=== PATIENT | male | born 1960 | race Caucasian/White ===

== ENCOUNTER 2022-01-29 10:07 | Inpatient (IN) | payer OTHER ==
[2022-01-29] MEDS ORDERED: SODIUM CHLORIDE 0.9% 500 ML 500 ML IV ONE (10:21)
[2022-01-29] MEDS ORDERED: ALPRAZolam 0.25 MG TAB PO PRN (10:29)
[2022-01-29] MEDS ORDERED: NITROGLYCERIN SL TABS 0.4 MG TAB SUBLINGUAL PRN ×2 (10:29→12:11)
[2022-01-29] MEDS ORDERED: ASPIRIN 325 MG TAB PO STA (10:29)
[2022-01-29] MEDS ORDERED: ATORVASTATIN 80 MG TAB PO STA (10:29)
[2022-01-29] MEDS ORDERED: PRASUGREL 10 MG TAB ONE (10:31)
[2022-01-29] MEDS ORDERED: PRASUGREL 10 MG TAB PO STA (10:33)
[2022-01-29] MEDS: ALPRAZolam 0.5 MG TAB PO PRN ×2 (10:42→18:08)
[2022-01-29] MEDS ORDERED: fentaNYL (PF) 50 MCG/ML 2 ML AMP ONE (11:00)
[2022-01-29] MEDS ORDERED: VERAPAMIL 2.5 MG/ML 2 ML AMP ONE (11:00)
[2022-01-29] MEDS ORDERED: HEPARIN SODIUM 1,000 UN/ML (10ML VL) ONE (11:00)
[2022-01-29] MEDS ORDERED: MIDAZOLAM 2 MG/2 ML VIAL IV ONE (11:28)
[2022-01-29] MEDS ORDERED: LIDOCAINE 1% INJ 10MG/ML (30 ML VIAL-PF) IV ONE (11:28)
[2022-01-29] MEDS ORDERED: HEPARIN SODIUM 1,000 UN/ML (10ML VL) IV ONE (11:30)
[2022-01-29] MEDS ORDERED: IOPAMIDOL-370 125ML BTL INJ ONE (11:55)
[2022-01-29] MEDS ORDERED: RX INFO: IV CONTRAST WAS GIVEN 1 EACH MISC MISCELLANE PRN (12:11)
[2022-01-29] MEDS ORDERED: ZOLPIDEM 5 MG TAB PO PRN (12:11)
[2022-01-29] MEDS ORDERED: MAG HYDROX/AL HYDROX/SIMETH 30 ML CUP PO PRN (12:11)
[2022-01-29] MEDS ORDERED: ATROPINE SULFATE 0.1 MG/ML 10ML SYRINGE IV PRN (12:11)
[2022-01-29] MEDS ORDERED: SODIUM CHLORIDE 0.9% 1,000 ML in EMPTY BAG 1 BAG IV SCH (12:15)
--- NOTE | 2022-01-29 12:20 | P.CARDCATH ---
Date of Procedure: 01/29/22 Description of Procedure: PERCUTANEOUS TRANSLUMINAL CORONARY ANGIOPLASTY CLINICAL INFORMATION: The patient is a 61-year-old male who has not seen a physician in over 10 years and presented with symptoms of progressive dyspnea, CHF and non-STEMI, underwent cardiac catheterization at [facility] and was found to have totally occluded RCA with collaterals from the left system and critical stenosis in the left circumflex. His echocardiogram showed moderate impairment of the systolic function with significant MR. Recommendations were made regarding angioplasty and stenting. The procedure as well as the risks and the complications were discussed with the patient who was in full understanding and agreement. PROCEDURE: The patient was brought to the central lab technician in the fasting Semicid dictated his stated, using guidewire exchange technique the 6-Solomon Islander sheath in the right radial artery was exchanged to a new 6-Solomon Islander sheath. A 6 Solomon Islander 3.5 CLS guiding catheter was introduced into the system. After cannulating the left main, a 0.014 BMW J was advanced across the lesion and positioned distally. Following that a 2.5 x 12 NC Treck balloon was advanced and inflated at 10 atmosphere. Following that a 3.0 x 23 mm Xience paolo point stent was deployed. It was dilated at 16. After removing the balloon a 3.25 x 12 mm Xience paolo point was positioned distal to the first one and deployed at 14 abner. Subsequently the balloon was withdrawn back and the proximal stent inflations were done at 12 abner. After removing the balloon an IVUS [place] eye catheter was introduced and images were obtained. After removing the catheter 3.5 x 15 mm NC Treck balloon was advanced and multiple inflation at 12 abner were done. After the last inflation, after appropriate wait, the balloon and the guidewire were withdrawn back into the guiding catheter. Images were obtained and repeated. Those images reveal stable successful stenting. At that point, the guiding catheter, the balloon, and guidewire were removed. The sheath was removed. Hemostasis was obtained with deployment of a TR band. There were no immediate complications. The patient was returned to the room in stable condition. Of note, the patient received 5000 units of heparin as well as loading dose of Effient. His ACT was followed. There was no immediate complications. He had chest discomfort and EKG changes with the inflations that resolved at the end of the procedure. RESULTS: Successful stenting of the proximal left circumflex with reduction of stenosis from 95 % to 0 %. RECOMMENDATIONS: The patient will be continued on dual antiplatelet treatment with aspirin and Effient for at least one year in addition to aggressive coronary risks modification. He'll be evaluated again his RCA disease for revascularization. The findings and recommendations were discussed with the patient and the family, they are in full understanding and agreement. Duration of sedation: 32 minutes
[2022-01-29] MEDS ORDERED: ONDANSETRON 4 MG/2 ML VIAL ONE (12:21)
[2022-01-29] MEDS: SODIUM CHLORIDE 0.9% 1,000 ML in EMPTY BAG 1 BAG IV SCH ×3 (18:58→23:30)
[2022-01-29 20:29] VITALS: TEMP 97.9
[2022-01-29] MEDS: FUROSEMIDE 20 MG TAB PO SCH (20:29)
[2022-01-29] MEDS: METOPROLOL SUCCINATE (ER) 25 MG TAB.ER.24H PO SCH (20:30)
[2022-01-29] MEDS ORDERED: ATORVASTATIN 80 MG TAB PO SCH (21:00)
[2022-01-30] MEDS: ALPRAZolam 0.5 MG TAB PO PRN (00:06)
--- NOTE | 2022-01-30 02:37 | HP ---
HISTORY AND PHYSICAL HISTORY OF PRESENT ILLNESS: A 61-year-old white male transferred from [facility] due to recent heart catheterization over there yesterday that showed a critical stenosis in the left circumflex. He has been sent over here for a PTCA, which had moderate impairment of systolic function, ejection fraction 35% and some moderate mitral regurgitation. He underwent angioplasty of the stent today. He is postop at this time. Medications were discussed with him. A 14-point review of systems is otherwise negative except for he has had progressive shortness of breath recently. Risk factor modification discussed with him. MEDICATIONS: He currently is taking, 1. Xanax 0.5 q.6h p.r.n. 2. Lipitor 80 at bedtime. 3. Farxiga 10 mg daily. 4. Lasix 20 mg b.i.d. 5. Lipitor 80 mg daily. 6. Aspirin 325 daily. 7. He is on Effient. 8. Metoprolol-XL 25 mg b.i.d. 9. Effient 10 mg daily. 10.Lisinopril 2.5 mg daily. PHYSICAL EXAMINATION: VITAL SIGNS: He is 96 on 3 L. Blood pressure has been low 60s to 75 systolic, checked at 122/44 postop, temp 98.3, pulse 99, respiratory rate 16 to 18. CARDIOVASCULAR: S1, S2. LUNGS: Clear. GI: Soft. EXTREMITIES: 2+ edema. ASSESSMENT: Cardiomyopathy. Questionable recent myocardial infarction, non ST-elevation myocardial infarction, ischemic cardiomyopathy, status post percutaneous transluminal coronary angioplasty of the left circumflex, acute hypoxic respiratory distress secondary to congestive heart failure, systolic heart failure. Home medicines were transferred over here from [facility], continue on them. Watch him postoperatively with risk factor modification. Farxiga has been given for congestive heart failure prevention for relapses at the hospital. Prognosis extremely is guarded. MMODL / IJN: [id number] /
[2022-01-30] MEDS: SODIUM CHLORIDE 0.9% 1,000 ML in EMPTY BAG 1 BAG IV SCH ×2 (06:19→15:16)
[2022-01-30] MEDS ORDERED: HEPARIN SODIUM,PORCINE 2,500 UNIT in SODIUM CHLORIDE 0.9% 250 ML IRRIGATION PRN (07:00)
[2022-01-30] MEDS ORDERED: HEPARIN SODIUM,PORCINE 10,000 UNIT in SODIUM CHLORIDE 0.9% 1,000 ML IRRIGATION PRN (07:00)
[2022-01-30 08:12] LABS: African American GFR (CKD) >90 (>60 ml/min/1.73 sqM); Anion Gap 11 mmol/L; Blood Urea Nitrogen 24 mg/dL (9-20); Calcium 8.4 mg/dL (8.4-10.2); Carbon Dioxide 23 mmol/L (22-30); Chloride 101 mmol/L (98-107); Glucose 108 mg/dL (74-99); Non-African American GFR(CKD) >90 (>60 ml/min/1.73 sqM); Potassium 4.1 mmol/L (3.5-5.1); Sodium 135 mmol/L (137-145)
[2022-01-30] MEDS ORDERED: lisinopriL 10 MG TAB PO SCH (09:00)
[2022-01-30] MEDS ORDERED: SPIRONOLACTONE 25 MG TAB PO SCH (09:00)
[2022-01-30] MEDS ORDERED: PRASUGREL 10 MG TAB PO SCH (09:00)
[2022-01-30] MEDS ORDERED: ASPIRIN 81 MG PO SCH (09:00)
[2022-01-30] MEDS ORDERED: DAPAGLIFLOZIN PROPANEDIOL 10 MG TABLET PO SCH (09:00)
[2022-01-30] MEDS: METOPROLOL SUCCINATE (ER) 25 MG TAB.ER.24H PO SCH (09:18)
[2022-01-30] MEDS: FUROSEMIDE 20 MG TAB PO SCH (09:18)
[2022-01-30 09:31] VITALS: BP 110/77; RESP 17
--- NOTE | 2022-01-30 11:39 | P.PN ---
Subjective Progress Note Date: 01/30/22 HISTORY OF PRESENT ILLNESS: This is 61-year-old male who underwent stenting of the proximal left circumflex yesterday with Dr. Bush. He initially underwent cardiac catheterization at [facility] and found to have totally occluded RCA with collaterals from the left and critical stenosis in the left circumflex. He had an echocardiogram there which revealed moderate impairment of the systolic function with significant MR. Patient examined this morning at the bedside. Patient denies chest pain or pressure. He denies shortness of breath. Vital signs are stable. Right radial cath site with pulse present. PHYSICAL EXAM: VITAL SIGNS: Reviewed. GENERAL: Well-developed in no acute distress. NECK: Supple. No JVD or thyromegaly LUNGS: Respirations even and unlabored. Lungs essentially clear to auscultation bilaterally. HEART: Regular rate and rhythm. S1 and S2 heard. + systolic murmur. EXTREMITIES: Normal range of motion. No clubbing or cyanosis. Peripheral pulses intact. No lower extremity edema ASSESSMENT: Coronary artery disease, status post stenting as above Ischemic cardiomyopathy Mitral regurgitation Former nicotine dependence Daily alcohol use PLAN: Recommend abstinence from alcohol Continue dual antiplatelet therapy Continue additional cardiac medications Continue to monitor patient for an additional 24 hours Likely discharge home tomorrow Nurse practitioner note has been reviewed by physician. Signing provider agrees with the documented findings, assessment, and plan of care. Objective - Vital Signs Vital signs: Vital Signs Temp 97.9 F 01/29/22 20:00 Pulse 97 01/30/22 09:20 Resp 17 01/30/22 08:00 BP 110/77 01/30/22 09:00 Pulse Ox 94 L 01/30/22 08:00 FiO2 Intake & Output 01/29/22 01/30/22 01/30/22 18:59 06:59 18:59 Intake Total 418 118 Output Total 500 400 0 Balance -82 -400 118 Weight 91 kg Intake: IV 300 Oral 118 118 Output: Urine 500 400 0 Urine/Stool Mix 0 Oral Regurgitation 0 Other: Voiding Method Toilet Urinal Toilet Urinal # Voids 0 # Bowel Movements 0 - Labs CBC & Chem 7: 01/30/22 06:56 Labs: Abnormal Lab Results - Last 24 Hours (Table) 01/30/22 Range/Units 06:56 Sodium 135 L (137-145) mmol/L BUN 24 H (9-20) mg/dL Glucose 108 H (74-99) mg/dL
[2022-01-30 13:53] VITALS: BMI 27.9
[2022-01-30 14:01] VITALS: PULSE 85
--- NOTE | 2022-01-31 00:44 | DS ---
DISCHARGE SUMMARY DISCHARGE MEDICATIONS: 1. Lipitor 80 mg daily. 2. Plavix 75 mg daily. 3. Lasix 20 mg b.i.d. 4. Zestril 2.5 daily. 5. Toprol-XL 25 b.i.d. 6. Aldactone 25 mg daily. 7. Nitrostat sublingual p.r.n. He was transferred here from [facility] to [facility] for which he had acute ischemic cardiomyopathy with a myocardial infarction. He underwent coronary angiogram. He had a right RCA stent placed. He has ejection fraction around 35%. He was stabilized with medical care. He was sent home in stable condition, unable to pay for [employer] and Effient, so we are going to switch him over to Plavix and aspirin. Follow up in office in a week for possible samples. Condition stable. Prognosis guarded. Ambulate as tolerated. Risk factor modification. MMODL / IJN: [id number] /
[2022-01-31] MEDS ORDERED: CLOPIDOGREL 75 MG TAB PO SCH (09:00)
--- NOTE | 2022-02-03 08:25 | CDI ---
Documentation Clarification Form Date: 02/03/2022 08:00:00 AM From: Sylwia Crenshaw Admit Date: 01/29/2022 10:08:00 AM Patient Name: Shyam Sloan Visit Number: [id number] Discharge Date: 01/30/2022 04:32:00 PM ATTENTION: The Clinical Documentation Specialists (CDI) and [facility] Coding Staff appreciate your assistance in clarifying documentation. Please respond to the clarification below the line at the bottom and electronically sign. The CDI & [facility] Coding staff will review the response and follow-up if needed. Please note: Queries are made part of the Legal Health Record. If you have any questions, please contact the author of this message via ITS. Dr. Fam Simon Per cardiac consult, written for previous admit of 01/27 Acute respiratory failure secondary to CHF systolic is documented. Please clarify if your patient still has acute hypoxic respiratory failure due to systolic CHF on this admit of January 29. Patient's O2 sat on admit is 91% on RA. Based on this information and the findings below, is there an additional diagnosis that is clinically appropriate for this patient? History/Risk Factors: NSTEMI, Patient with recent admit for systolic CHF and respiratory failure. Tobacco use: Patient has a history of tobacco use Home oxygen: NO Clinical Indicators: 91% on RA and placed on 3L NC, EF of 35% Vital signs: 98.3 F 99 bpm 16, 60/43, 91% on RA put on 3L NC Treatment: O2, Given Farxiga for CHF prevention, Received a home dose of Lasix O2/Vent/BiPap O2 2 and 3 L NC Is there an additional diagnosis that is clinically appropriate for this patient? [ ] Acute Hypoxic Respiratory Failure (pO2 <60 mm Hg or SpO2 <91% on room air) due to acute systolic CHF [ ] Acute Hypercapnic Respiratory Failure (pCO2 >50 and pH <7.35) [ ] Acute on Chronic Respiratory Failure [ ] Chronic Respiratory Failure [ ] Acute Respiratory Distress [ ] Acute Respiratory failure due to Acute systolic CHF ruled out (on previous admit) [ ] Other Diagnosis, please specify [ ] Unable to determine MTDD
--- NOTE | 2022-02-05 11:34 | CDI ---
Documentation Clarification Form Date: 02/03/2022 08:00:00 AM From: Sylwia Crenshaw Admit Date: 01/29/2022 10:08:00 AM Patient Name: Shyam Sloan Visit Number: [id number] Discharge Date: 01/30/2022 04:32:00 PM ATTENTION: The Clinical Documentation Specialists (CDI) and [facility] Coding Staff appreciate your assistance in clarifying documentation. Please respond to the clarification below the line at the bottom and electronically sign. The CDI & [facility] Coding staff will review the response and follow-up if needed. Please note: Queries are made part of the Legal Health Record. If you have any questions, please contact the author of this message via ITS. Dr. Fam Simon Per cardiac consult, written for previous admit of 01/27 Acute respiratory failure secondary to CHF systolic is documented. Please clarify if your patient still has acute hypoxic respiratory failure due to systolic CHF on this admit of January 29. Patient's O2 sat on admit is 91% on RA. Based on this information and the findings below, is there an additional diagnosis that is clinically appropriate for this patient? History/Risk Factors: NSTEMI, Patient with recent admit for systolic CHF and respiratory failure. Tobacco use: Patient has a history of tobacco use Home oxygen: NO Clinical Indicators: 91% on RA and placed on 3L NC, EF of 35% Vital signs: 98.3 F 99 bpm 16, 60/43, 91% on RA put on 3L NC Treatment: O2, Given Farxiga for CHF prevention, Received a home dose of Lasix O2/Vent/BiPap O2 2 and 3 L NC Is there an additional diagnosis that is clinically appropriate for this patient? [ ] Acute Hypoxic Respiratory Failure (pO2 <60 mm Hg or SpO2 <91% on room air) due to acute systolic CHF [ ] Acute Hypercapnic Respiratory Failure (pCO2 >50 and pH <7.35) [ ] Acute on Chronic Respiratory Failure [ ] Chronic Respiratory Failure [ ] Acute Respiratory Distress [ ] Acute Respiratory failure due to Acute systolic CHF ruled out (on previous admit) [ ] Other Diagnosis, please specify [ ] Unable to determine MTDD
--- NOTE | 2022-02-07 14:29 | PN ---
PROGRESS NOTE Acute hypoxemic respiratory failure, hypercapnic respiratory failure due to acute systolic congestive heart failure. MMODL / IJN: [id number] /
== END 2022-01-30 16:32 | disposition home or self-care (01) | DRG 246 ==
LOC: 3SCARD 10:08
PROVIDERS: ADMIT Family Medicine; ATTEND Family Medicine
PROC: 027035Z Dilation of Coronary Artery, One Artery with Two Drug-eluting Intraluminal Devices, Percutaneous Approach (ICD-10-PCS; principal; 2022-01-29 11:45)
DX: I25.10 Atherosclerotic heart disease of native coronary artery without angina pectoris (principal); I21.4 Non-ST elevation (NSTEMI) myocardial infarction; J96.01 Acute respiratory failure with hypoxia; J96.02 Acute respiratory failure with hypercapnia; I50.21 Acute systolic (congestive) heart failure; I50.22 Chronic systolic (congestive) heart failure; I25.5 Ischemic cardiomyopathy; Z28.310 Unvaccinated for COVID-19; Z28.21 Immunization not carried out because of patient refusal; I34.0 Nonrheumatic mitral (valve) insufficiency; I25.2 Old myocardial infarction; Z71.3 Dietary counseling and surveillance; Z87.891 Personal history of nicotine dependence; Z79.01 Long term (current) use of anticoagulants; Z79.82 Long term (current) use of aspirin; Z79.899 Other long term (current) drug therapy
CPT/HCPCS: 80048

== ENCOUNTER → 2022-05-01 | Outpatient (CLI) | payer OTHER ==
[~2022-05-01] MED LIST: REGADENOSON 0.4 MG/5 ML SYRINGE IV ONE
--- NOTE | 2022-05-01 13:05 | CA ---
Lexiscan Nuclear Stress Test Report Name: Shyam Sloan Exam Date: 05/01/2022 10:12 Exam Location: [place] Stress Ht (in): 70 Wt (lb): 190 BSA: 2.04 Ordering Phys: Estephania Bush MD Referring Phys: Sophia Mclean Technologist: Goyo Raya Age: 61 Gender: M : 1960 Procedure CPT: Indications: I25.5 ISCHEMIC CARDIOMYOPATHY I25.10 HEART DISEASE ICD-10 Codes: Patient History: Medications: SPIRONLACTONE, FUROSIMIDE, ATORVASTATIN, CLOPIDOGREL, ASA, LISINOPRIL, NITROGLYCERIN, METOPROLOL Meds past 24 hrs: Pretest Chest Pain: STRESS TEST Lexiscan Protocol Exercise Duration (min:sec): 02:[address] Depressions (mm): Angina Score: Heller Score: Resting HR (bpm): 95 Peak HR (bpm): 103 Resting BP (mmHg): 122 / 97 Peak BP (mmHg): 179 / 90 MPHR: 159 Target HR: 135 % MPHR: 65 METS: 1.0 Total Dose: Peak Dose: Atropine: Double Product: 79122 BP Response: Stress Termination: PROTOCOL COMPLETE Stress Symptoms: SLIGHT CHEST TIGHTNESS, BETTER AFTER TEST WAS COMPLETE Stress Summary: ECG ANALYSIS Resting ECG: Stress ECG: CONCLUSIONS Lexiscan Cardiolite stress test Baseline heart rate 95 beats a minute Blood pressure 120-1 7 mmHg Baseline per EKG shows a right bundle branch block pattern with [address] depression in the precordial leads Occasional PVCs Patient received Lexiscan infusion per protocol Heart rates remained in the 80s and 90s Occasional PVCs noted Elevated blood pressure reading at the end of the procedure, 179/90 mmHg Patient complaining of chest tightness ECG abnormalities persisted New proportional be reported separately Dr. Alek Hansen MD (Electronically Signed) Final Date: 01 May 2022 13:04
--- NOTE | 2022-05-04 06:52 | NM ---
EXAMINATION TYPE: NM stress lexiscan cardiolite DATE OF EXAM: 05/01/2022 COMPARISON: NONE HISTORY: History of hypertension and hypercholesterolemia. History of heart catheterization with kimberly oplasty. History of tobacco use in the past. Ischemic cardiomyopathy. Difficulty in breathing. TECHNIQUE: After the intravenous administration of 10.2 mCi Tc 99m Sestamibi - Cardiolite resting SP ECT images acquired 45 minutes post injection. The patient received 0.4mg Lexiscan, 25.2 mCi Tc 99m Sestamibi - Stress images obtained [address] injection FINDINGS: Review of stress and rest SPECT images demonstrates for uptake on stress and rest images in the infer ior left ventricular wall consistent with old infarct. Polar maps show areas of uptake on rest images versus rest images. Some areas of bryan-infarct ischemia cannot be excluded. Gated analysis shows dim inished overall left ventricular ejection fraction estimated at 34%. Abnormal end diastolic volume no ana cristina. IMPRESSION: Evidence of dilated cardiomyopathy confirmed. Bryan-infarct ischemia though unlikely canno t be excluded on this exam.
== END | disposition home or self-care (01) ==
LOC: RADNMMAIN 08:22
PROVIDERS: ATTEND Internal Medicine Interventional Cardiology
DX: I42.0 Dilated cardiomyopathy (principal); I25.5 Ischemic cardiomyopathy; I25.10 Atherosclerotic heart disease of native coronary artery without angina pectoris; I10 Essential (primary) hypertension; E78.00 Pure hypercholesterolemia, unspecified; I45.10 Unspecified right bundle-branch block; R94.31 Abnormal electrocardiogram [ECG] [EKG]; Z72.0 Tobacco use
CPT/HCPCS: 93017; 78452; A9500; J2785

== ENCOUNTER → 2023-03-09 | Outpatient (CLI) | payer OTHER ==
[2023-03-09 08:31] LABS: NT-Pro-B-Type Natriuretic Pept 775 pg/mL
[2023-03-09 16:04] LABS: ALT 35 U/L (10-49); AST 64 U/L (14-35); Albumin 4.4 g/dL (3.8-4.9); Albumin/Globulin Ratio 1.29 Ratio (1.60-3.17); Alkaline Phosphatase 124 U/L (41-126); Blood Urea Nitrogen 13.8 mg/dL (9.0-27.0); Calcium 9.5 mg/dL (8.7-10.3); Carbon Dioxide 25.5 mmol/L (21.6-31.8); Chloride 102 mmol/L (96-109); Chol/HDL Ratio 2.95 Ratio; Globulin 3.4 g/dL (1.6-3.3); Glucose 121 mg/dL (70-110); LDL Cholesterol,Calculated 65.5 mg/dL (0.0-131.0); Potassium 4.6 mmol/L (3.5-5.5); Sodium 141 mmol/L (135-145); Total Bilirubin 0.4 mg/dL (0.3-1.2); Total Protein 7.8 g/dL (6.2-8.2)
== END | disposition home or self-care (01) ==
LOC: LABWHC1 07:44
PROVIDERS: ATTEND Internal Medicine Interventional Cardiology
DX: I25.5 Ischemic cardiomyopathy (principal); E78.2 Mixed hyperlipidemia
CPT/HCPCS: 36415; 80053; 80061; 83880

== ENCOUNTER 2023-03-29 07:10 | Day surgery (SDC) | payer OTHER ==
[2023-03-25 09:12] VITALS: BMI 27.9
[~2023-03-29 07:10] MED LIST changes: +ALPRAZolam 0.25 MG TAB PO PRN; +ALPRAZolam 0.5 MG TAB PO PRN; +ASPIRIN 325 MG TAB PO STA; +NITROGLYCERIN SL TABS 0.4 MG TAB SUBLINGUAL PRN; -REGADENOSON 0.4 MG/5 ML SYRINGE IV ONE; +SODIUM CHLORIDE 0.9% 1,000 ML in EMPTY BAG 1 BAG IV SCH
[2023-03-29 07:34] LABS: Basophils % (A) 1 %; Eosinophils # (A) 0.4 k/uL (0-0.7); Eosinophils % (A) 6 %; HCT 44.5 % (39.0-53.0); HGB 14.6 gm/dL (13.0-17.5); Lymphocytes # (A) 1.8 k/uL (1.0-4.8); Lymphocytes % (A) 29 %; MCH 32.9 pg (25.0-35.0); MCHC 32.9 g/dL (31.0-37.0); Mean Platelet Volume 7.8; Monocytes # (A) 0.4 k/uL (0-1.0); Monocytes % (A) 6 %; Neutrophils # (A) 3.6 k/uL (1.3-7.7); Neutrophils % (A) 58 %; Platelet Count 176 k/uL (150-450); RBC 4.45 m/uL (4.30-5.90); RDW 13.4 % (11.5-15.5); WBC 6.3 k/uL (3.8-10.6)
[2023-03-29 07:39] VITALS: RESP 18; TEMP 97.3
[2023-03-29 07:47] LABS: Glucose,Whole Blood 105 mg/dL (70-110)
[2023-03-29] MEDS ORDERED: HEPARIN SODIUM 1,000 UN/ML (10ML VL) ONE (09:34)
[2023-03-29] MEDS ORDERED: fentaNYL (PF) 50 MCG/ML 2 ML AMP ONE (09:34)
[2023-03-29] MEDS ORDERED: LIDOCAINE 1% INJ 10MG/ML (20 ML MDV) ONE (09:34)
[2023-03-29] MEDS ORDERED: VERAPAMIL 2.5 MG/ML 2 ML AMP ONE (09:34)
[2023-03-29] MEDS ORDERED: fentaNYL (PF) 50 MCG/1 ML VIAL IVP ONE (09:45)
[2023-03-29] MEDS: MIDAZOLAM 2 MG/2 ML VIAL IVP ONE ×2 (09:45→10:12)
[2023-03-29] MEDS ORDERED: LIDOCAINE 1% INJ 10MG/ML (20 ML MDV) SQ ONE (09:47)
[2023-03-29] MEDS: VERAPAMIL SYRINGE (5 MG/10 ML) INTRAARTER ONE ×2 (09:55→10:16)
[2023-03-29] MEDS: HEPARIN SODIUM 1,000 UN/ML (10ML VL) IV ONE ×2 (09:58→10:11)
[2023-03-29] MEDS ORDERED: NITROGLYCERIN 1000MCG/10ML SYRINGE INTRACORON ONE (10:24)
[2023-03-29] MEDS ORDERED: IOPAMIDOL-370 100ML BTL INJ ONE (10:27)
[2023-03-29] MEDS ORDERED: RX INFO: IV CONTRAST WAS GIVEN 1 EACH MISC MISCELLANE PRN (10:43)
[2023-03-29] MEDS ORDERED: NITROGLYCERIN SL TABS 0.4 MG TAB SUBLINGUAL PRN (10:44)
[2023-03-29] MEDS ORDERED: SODIUM CHLORIDE 0.9% 1,000 ML IV SCH (10:45)
--- NOTE | 2023-03-29 10:57 | P.CARDCATH ---
Date of Procedure: 03/29/23 Description of Procedure: Cardiac Catheterization: The patient is a 62-year-old male with known history of CAD, hypertension, hyperlipidemia, post stenting of the left circumflex in January 2022 and known chronic total occlusion of the RCA was been complaining of episodes of chest discomfort improved with nitroglycerin, increasing in frequency. Recommendations were made regarding cardiac catheterization, the risks and the complications were discussed with the patient who is in full understanding and agreement. Procedure Description: Patient was brought to cath lab nurse in fasting semi-sedated state after receiving Fentanyl and Benadryl achieiving moderate conscious sedated state. Using Xylocaine Anesthesia and modified Seldinger technique, a 6-Malaysian sheath was introduced in the right radial artery . Subsequently, selective coronary angiography was performed using a 5-Malaysian 3.5 bend Steffanie catheter. Multiple views of the coronary artery including hemiaxial views were obtained. The 6-Malaysian pigtail catheter was used to cross the aortic valve and LVEDP was calculated. Following that a 6-Malaysian CLS 3.5 guiding catheter was introduced and the left main was cannulated. Subsequently an Omni Doppler flow wire was introduced in the LAD and IFR was measured, the wire was introduced afterward to the left circumflex and IFR was measured. Following that, catheter and sheath were removed. Hemostasis was obtained with deployment of vascular band . There was no immediate complication. Patient was returned to room in stable condition. Of note, the patient received a total of 5500 units of intravenous heparin as well as intra-arterial verapamil. Findings: Fluoroscopy: Calcification of the coronary arteries was noted of moderate to severe degree Left main: This is a large size vessel bifurcating into LAD and left circumflex, the proximal LAD has 10-20% plaque. LAD: This is a large size vessel reaching to the apex giving rise to a diagonal branch proximally the takeoff of the diagonal branch has a 99% stenosis, the proximal LAD has an eccentric 60-70% stenosis, the rest of the vessel has diffuse intimal disease without any high-grade stenosis. Left circumflex: This is a nondominant vessel, large in caliber giving rise to 2 obtuse marginal branch the stented segment in the proximal left circumflex is patent, there is a 30-40% plaque proximally that is of the vessel has no high- grade stenosis RCA: In this vessel is totally occluded in the midsegment with no significant antegrade flow, there is collateral from the left system toward the PDA and the PLV IFR: The LAD 0.98, left circumflex 1.04 Left Ventriculogram: Not performed Hemodynamics: There was no gradient across the aortic valve, LVEDP was 18-20 mmHg Conclusion: 1. Calcified coronary arteries 2. Moderate disease in the LAD with non hemodynamically significant IFR 3. Mild instent restenosis of the left circumflex with non hemodynamically significant IFR 4. Chronically occluded RCA Recommendations: I would recommend to continue medical therapy with continued aggressive coronary risks modifications and depending on his progress further recommendations will be made. The findings and the recommendations were discussed with the patient and the family and they were in full understanding and agreement. Duration of sedation is 44 minutes.
[2023-03-29 13:32] VITALS: BP 112/57; PULSE 71
[2023-03-29] MEDS ORDERED: lisinopriL 10 MG TAB PO SCH (21:00)
[2023-03-29] MEDS ORDERED: ISOSORBIDE MONONITRATE ER 60 MG TAB.ER.24H PO SCH (21:00)
[2023-03-29] MEDS ORDERED: DAPAGLIFLOZIN PROPANEDIOL 10 MG TABLET PO SCH (21:00)
[2023-03-29] MEDS ORDERED: METOPROLOL SUCCINATE (ER) 25 MG TAB.ER.24H PO SCH (21:00)
[2023-03-29] MEDS ORDERED: SPIRONOLACTONE 25 MG TAB PO SCH (21:00)
[2023-03-29] MEDS ORDERED: ATORVASTATIN 80 MG TAB PO SCH (21:00)
[2023-03-30] MEDS ORDERED: CLOPIDOGREL 75 MG TAB PO SCH (09:00)
[2023-03-30] MEDS ORDERED: ASPIRIN 81 MG PO SCH (09:00)
== END 2023-03-29 13:48 | disposition home or self-care (01) ==
LOC: CATHCVL 07:10
PROVIDERS: ATTEND Internal Medicine Interventional Cardiology
DX: I25.10 Atherosclerotic heart disease of native coronary artery without angina pectoris (principal); I25.82 Chronic total occlusion of coronary artery; I10 Essential (primary) hypertension; E78.5 Hyperlipidemia, unspecified; Z86.79 Personal history of other diseases of the circulatory system; F10.90 Alcohol use, unspecified, uncomplicated; Z95.5 Presence of coronary angioplasty implant and graft; Z98.62 Peripheral vascular angioplasty status; Z82.49 Family history of ischemic heart disease and other diseases of the circulatory system; Z79.899 Other long term (current) drug therapy
CPT/HCPCS: 93458; 93799; 85025; C1887; C1769 ×3; C1894; J2250; J2001; J1644; Q9967; J3010; J2305

== ENCOUNTER → 2023-06-16 | Outpatient (CLI) | payer OTHER ==
[2023-06-16 18:06] LABS: ALT 31 U/L (10-49); AST 50 U/L (14-35); Chol/HDL Ratio 2.45 Ratio; LDL Cholesterol,Calculated 38.1 mg/dL (0.0-131.0)
== END | disposition home or self-care (01) ==
LOC: LABWHC1 08:23
PROVIDERS: ATTEND Internal Medicine Interventional Cardiology
DX: E78.2 Mixed hyperlipidemia (principal)
CPT/HCPCS: 36415; 80061; 84450; 84460

== ENCOUNTER 2023-07-06 08:06 | Day surgery (SDC) | payer OTHER ==
[2023-07-05 10:18] VITALS: BMI 28.4
[~2023-07-06 08:06] MED LIST changes: -ASPIRIN 325 MG TAB PO STA; +HEPARIN SODIUM,PORCINE (1 ML) 2,500 UNIT in SODIUM CHLORIDE 0.9% 250 ML IRRIGATION PRN; +HEPARIN SODIUM,PORCINE 10,000 UNIT in SODIUM CHLORIDE 0.9% 1,000 ML IRRIGATION PRN; -SODIUM CHLORIDE 0.9% 1,000 ML in EMPTY BAG 1 BAG IV SCH
[2023-07-06] MEDS: SODIUM CHLORIDE 0.9% 1,000 ML IV ONE (08:59)
[2023-07-06 09:05] LABS: Basophils % (A) 1 %; Eosinophils # (A) 0.2 k/uL (0-0.7); Eosinophils % (A) 3 %; HGB 14.5 gm/dL (13.0-17.5); Lymphocytes % (A) 20 %; MCH 32.8 pg (25.0-35.0); MCHC 32.9 g/dL (31.0-37.0); MCV 99.8 fL (80.0-100.0); Macrocytosis Slight; Mean Platelet Volume 7.8; Monocytes # (A) 0.3 k/uL (0-1.0); Monocytes % (A) 7 %; Neutrophils # (A) 3.4 k/uL (1.3-7.7); Neutrophils % (A) 68 %; Platelet Count 160 k/uL (150-450); RBC 4.41 m/uL (4.30-5.90)
[2023-07-06 09:19] LABS: African American GFR (CKD) >90 (>60 ml/min/1.73 sqM); Anion Gap 11 mmol/L; Blood Urea Nitrogen 17 mg/dL (9-20); Carbon Dioxide 21 mmol/L (22-30); Chloride 109 mmol/L (98-107); Glucose 113 mg/dL (74-99); Non-African American GFR(CKD) >90 (>60 ml/min/1.73 sqM); Potassium 3.9 mmol/L (3.5-5.1); Sodium 141 mmol/L (137-145)
[2023-07-06 09:22] VITALS: RESP 16
[2023-07-06] MEDS ORDERED: VERAPAMIL 2.5 MG/ML 2 ML AMP ONE (10:42)
[2023-07-06] MEDS ORDERED: LIDOCAINE 1% INJ 10MG/ML (20 ML MDV) ONE (10:42)
[2023-07-06] MEDS ORDERED: HEPARIN SODIUM 1,000 UN/ML (10ML VL) ONE (10:42)
[2023-07-06] MEDS ORDERED: fentaNYL (PF) 50 MCG/ML 2 ML AMP ONE (10:48)
[2023-07-06] MEDS ORDERED: HEPARIN SODIUM,PORCINE 30 ML 30 ML ONE (10:49)
[2023-07-06] MEDS: fentaNYL (PF) 50 MCG/1 ML VIAL IVP ONE (11:08)
[2023-07-06] MEDS: MIDAZOLAM 2 MG/2 ML VIAL IVP ONE ×3 (11:16→12:23)
[2023-07-06] MEDS: LIDOCAINE 1% INJ 10MG/ML (20 ML MDV) SQ ONE (11:16)
[2023-07-06] MEDS: VERAPAMIL SYRINGE (5 MG/10 ML) INTRAARTER ONE (11:18)
[2023-07-06] MEDS: HEPARIN SODIUM 1,000 UN/ML (10ML VL) IVP ONE ×2 (11:23→11:29)
[2023-07-06] MEDS: IOPAMIDOL-370 100ML BTL INJ ONE ×2 (11:50→12:32)
[2023-07-06] MEDS: NITROGLYCERIN 1000MCG/10ML SYRINGE INTRACORON ONE (12:26)
[2023-07-06] MEDS ORDERED: MAG HYDROX/AL HYDROX/SIMETH 30 ML CUP PO PRN (12:45)
[2023-07-06] MEDS ORDERED: RX INFO: IV CONTRAST WAS GIVEN 1 EACH MISC MISCELLANE PRN (12:45)
[2023-07-06] MEDS ORDERED: ZOLPIDEM 5 MG TAB PO PRN (12:45)
[2023-07-06] MEDS ORDERED: NITROGLYCERIN SL TABS 0.4 MG TAB SUBLINGUAL PRN ×2 (12:45→12:47)
[2023-07-06] MEDS ORDERED: ATROPINE SULFATE 0.1 MG/ML 10ML SYRINGE IV PRN (12:45)
--- NOTE | 2023-07-06 12:56 | P.CARDCATH ---
Date of Procedure: 07/06/23 Description of Procedure: Cardiac Catheterization: The patient is a 62-year-old male who presented in 2021 with an acute myocardial infarction and underwent stenting of the left circumflex, he has chronic total occlusion of the RCA and moderate significant disease in the LAD. Recently he has been complaining of a increase chest discomfort, resolving with sublingual nitroglycerin. Recommendations were made regarding cardiac catheterization, the risks and the complications were discussed with the patient who is in full understanding and agreement. Procedure Description: Patient was brought to dairy lab technician in fasting semi-sedated state after receiving Fentanyl and Benadryl achieiving moderate conscious sedated state. Using Xylocaine Anesthesia and modified Seldinger technique, a 6-Malay sheath was introduced in the right radial artery . Subsequently, selective coronary angiography was performed using a 5-Malay 3.5 bend Steffanie catheter. Multiple views of the coronary artery including hemiaxial views were obtained. The right Steffanie catheter was used to cross the aortic valve and LVEDP was calculated. PCI: After removing the catheter a 6 Malay EBU 4.0 guiding catheter was introduced and after cannulating the left main a 0.014 BMW J-wire was positioned in the distal LAD. Attempt to advance a [place] eye IVUS were unsuccessful, the catheter was removed and a 2.5 x 12 mm NC trek balloon was advanced and 2 inflation at 10 abner were done. Subsequently the IVUS was advanced and images were obtained that revealed severe calcification at the site of the lesion. After removing the catheter a 3.5 x 12 mm lithotripsy shockwave balloon was advanced and multiple treatment were done in the proximal segment of the LAD. After removing the balloon repeat IVUS imaging was performed and subsequently a 3.0 x 33 mm Xience paolo point stent was deployed at 16 abner. Repeat IVUS imaging was performed and a 4.0 x 15 mm NC trek balloon was advanced and 2 inflations at 10 abner were done. After the last inflation the wire was withdrawn back in the guiding catheter and images were obtained and revealed stable successful stenting. Following that, catheter and sheath were removed. Hemostasis was obtained with deployment of vascular band . There was no immediate complication. Patient was returned to room in stable condition. Of note, the patient received a total of 8000 units of intravenous heparin as well as intra-arterial verapamil. He was continued on clopidogrel. His ACT was followed. He had chest discomfort and EKG changes with the inflations that resolved at the end of the procedure. Findings: Fluoroscopy: Severe calcifications of the LAD was noted Left main: This is a large size vessel bifurcating into LAD and left circumflex, left main has no significant obstructive disease LAD: This is a large size vessel, reaching to the apex, giving rise to a proximal diagonal branch of moderate caliber. The LAD proximally has an eccentric 90% stenosis and a first diagonal branch has a 99% stenosis in the ostium. The rest of the vessel has diffuse intimal disease. Left circumflex: This is a nondominant vessel giving rise to 3 obtuse marginal branch the first 1 is small in caliber. The stented segment in the proximal left circumflex is patent with mild in-stent restenosis of 20 to 30%. RCA: This is a dominant vessel that has a 90% stenosis proximally and then chronic total occlusion in mid segment with no significant antegrade flow. There is collaterals from the LAD toward the PDA Left Ventriculogram: Not performed Hemodynamics: There was no gradient across aortic valve, LVEDP was 16-18 mmHg Conclusion: 1. Calcified LAD with severe stenosis proximally 2. Patent stent in the left circumflex with mild in-stent restenosis 3. Chronic total occlusion of the RCA 4. Successful stenting of the proximal LAD with reduction of stenosis from 90% to less than 5% with adjunctive IVUS imaging and shockwave treatment Recommendations: The patient will continue on aspirin and clopidogrel without any interruption for at least 6 months in addition to aggressive coronary risks modification, attempting to maintain LDL below 70 mg/dL. The findings and the recommendations were discussed with the patient and the family and they were in full understanding and agreement. Duration of sedation is 87 minutes.
[2023-07-06] MEDS: SODIUM CHLORIDE 0.9% 1,000 ML in EMPTY BAG 1 BAG IV SCH ×2 (16:26)
[2023-07-06] MEDS: ASPIRIN 325 MG TAB PO ONE (16:26)
[2023-07-06] MEDS: ATORVASTATIN 80 MG TAB PO SCH (20:27)
[2023-07-06] MEDS: METOPROLOL SUCCINATE (ER) 50 MG TAB.ER.24H PO SCH (20:27)
[2023-07-06] MEDS: lisinopriL 10 MG TAB PO SCH (20:27)
[2023-07-06] MEDS: SPIRONOLACTONE 25 MG TAB PO SCH (20:27)
[2023-07-06] MEDS: ISOSORBIDE MONONITRATE ER 60 MG TAB.ER.24H PO SCH (20:28)
[2023-07-06] MEDS: DAPAGLIFLOZIN PROPANEDIOL 10 MG TABLET PO SCH (20:28)
[2023-07-07 07:11] VITALS: BP 101/71; PULSE 95; TEMP 98.7
[2023-07-07 07:47] LABS: African American GFR (CKD) >90 (>60 ml/min/1.73 sqM); Anion Gap 9 mmol/L; Blood Urea Nitrogen 11 mg/dL (9-20); Calcium 8.6 mg/dL (8.4-10.2); Carbon Dioxide 22 mmol/L (22-30); Chloride 108 mmol/L (98-107); Glucose 104 mg/dL (74-99); Non-African American GFR(CKD) >90 (>60 ml/min/1.73 sqM); Potassium 3.6 mmol/L (3.5-5.1); Sodium 139 mmol/L (137-145)
[2023-07-07] MEDS: CLOPIDOGREL 75 MG TAB PO SCH (08:30)
[2023-07-07] MEDS: ASPIRIN 81 MG PO SCH (08:30)
--- NOTE | 2023-07-07 10:13 | P.DS ---
Providers Attending physician: Estephania Bush Consults: 07/06/23 12:46 Consult Physician Routine Consulting Provider: [facility] Consult Reason/Comments: Post Interventional patient Do you want consulting provider notified?: Already Contacted Primary care physician: Ángel Hutchins MD Hospital Course: This is a 62-year-old male who underwent cardiac catheterization yesterday with Dr. Bush revealing calcified LAD with severe stenosis proximally, patent stent in the left circumflex with mild in-stent restenosis, chronic total occlusion of the RCA, and successful stenting of the proximal LAD with IVUS imaging and [facility] treatment. Patient examined this morning. He is sitting up in the chair. Patient denies any further episodes of chest pain. He denies any shortness of breath. Right radial cath site with pulse present. No hematoma noted. Vital signs are stable. Patient to be discharged home on dual antiplatelet therapy with aspirin and Plavix. Please see EMR for further hospital course details. Discharge diagnosis 1. Coronary artery disease, status post stenting of the proximal LAD Nurse practitioner note has been reviewed by physician. Signing provider agrees with the documented findings, assessment, and plan of care documented by [employer] as a scribe. Plan - Discharge Summary Discharge Rx Participant: No New Discharge Prescriptions: Continue Atorvastatin [Lipitor] 80 mg PO HS #90 tab Clopidogrel [Plavix] 75 mg PO DAILY 30 Days #30 tab Metoprolol Succinate (ER) [Toprol XL] 50 mg PO HS Spironolactone [Aldactone] 25 mg PO HS Nitroglycerin Sl Tabs [Nitrostat] 0.4 mg SUBLINGUAL Q5M PRN #100 tab PRN Reason: Chest Pain Aspirin 81 mg PO DAILY #90 tab lisinopriL [Zestril] 10 mg PO BID Isosorbide Mononitrate ER [Imdur] 60 mg PO HS Dapagliflozin Propanediol [Farxiga] 10 mg PO HS Discharge Medication List Aspirin 81 mg PO DAILY #90 tab 01/30/22 [Rx] Atorvastatin [Lipitor] 80 mg PO HS #90 tab 01/30/22 [Rx] Clopidogrel [Plavix] 75 mg PO DAILY 30 Days #30 tab 01/30/22 [Rx] Dapagliflozin Propanediol [Farxiga] 10 mg PO HS 03/25/23 [History] Isosorbide Mononitrate ER [Imdur] 60 mg PO HS 03/25/23 [History] Metoprolol Succinate (ER) [Toprol XL] 50 mg PO HS 03/25/23 [History] lisinopriL [Zestril] 10 mg PO BID 03/25/23 [History] Nitroglycerin Sl Tabs [Nitrostat] 0.4 mg SUBLINGUAL Q5M PRN #100 tab 03/29/23 [Rx] Spironolactone [Aldactone] 25 mg PO HS 03/29/23 [History] Follow up Appointment(s)/Referral(s): Estephania Bush MD [STAFF PHYSICIAN] - 2 Weeks () Patient Instructions/Handouts: Moderate Sedation (DC), After Radial Heart Catheterization (GEN) Activity/Diet/Wound Care/Special Instructions: *NO LIFTING, PUSHING, OR PULLING ANYTHING OVER 5 POUNDS FOR 5 DAYS *NO DRIVING FOR 3 DAYS *YOU CAN REMOVE YOUR DRESSING TOMORROW BUT DO NOT SUBMERSE YOUR PUNCTURE SITE IN WATER FOR A FEW DAYS TO PREVENT INFECTION - SO NO TUB BATHS, POOLS, HOT TUBS, DISHES...ETC *ANY SIGNS OF BLEEDING (HARDNESS, SWELLING, OR EXCESSIVE BRUISING) HOLD DIRECT PRESSURE ON YOUR PUNCTURE SITE AND COME TO THE NEAREST EMERGENCY ROOM TO GET YOUR PUNCTURE SITE LOOKED AT - DO NOT DRIVE YOURSELF! EITHER CALL EMS OR HAVE SOMEONE DRIVE YOU!
== END 2023-07-07 10:47 | disposition home or self-care (01) ==
LOC: CATHCVL 08:06 → 6NMEDSUR 12:30 → CATHCVL 07-07 10:47
PROVIDERS: ATTEND Internal Medicine Interventional Cardiology
DX: I25.10 Atherosclerotic heart disease of native coronary artery without angina pectoris (principal); I10 Essential (primary) hypertension; E78.5 Hyperlipidemia, unspecified; F17.210 Nicotine dependence, cigarettes, uncomplicated; I25.5 Ischemic cardiomyopathy; I34.0 Nonrheumatic mitral (valve) insufficiency; E78.2 Mixed hyperlipidemia; Z82.49 Family history of ischemic heart disease and other diseases of the circulatory system; Z79.899 Other long term (current) drug therapy
CPT/HCPCS: 92978; 93458; 92972; 80048 ×2; 85025; C9600; C1769 ×2; C1887 ×2; C1894; C1753; C1874; C1761; C1725 ×2; J2250; J2001; J1644; Q9967; J3010; J2305

== ENCOUNTER → 2023-09-23 | Outpatient (CLI) | payer OTHER ==
[2023-09-23 15:55] LABS: ALT 45 U/L (10-49); AST 57 U/L (14-35); Albumin 4.1 g/dL (3.8-4.9); Albumin/Globulin Ratio 1.14 Ratio (1.60-3.17); Alkaline Phosphatase 178 U/L (41-126); BUN/Creat Ratio 15.38 Ratio (12.00-20.00); Blood Urea Nitrogen 12.3 mg/dL (9.0-27.0); Calcium 9.7 mg/dL (8.7-10.3); Chloride 101 mmol/L (96-109); Chol/HDL Ratio 2.72 Ratio; Globulin 3.6 g/dL (1.6-3.3); Glucose 115 mg/dL (70-110); LDL Cholesterol,Calculated 49.9 mg/dL (0.0-131.0); Potassium 4.1 mmol/L (3.5-5.5); Sodium 137 mmol/L (135-145); Total Bilirubin 0.3 mg/dL (0.3-1.2); Total Protein 7.7 g/dL (6.2-8.2)
== END | disposition home or self-care (01) ==
LOC: LABWHC1 07:49
PROVIDERS: ATTEND Internal Medicine Interventional Cardiology
DX: Z12.5 Encounter for screening for malignant neoplasm of prostate (principal); E78.2 Mixed hyperlipidemia
CPT/HCPCS: 80061; 80053; 36415; G0103

== ENCOUNTER → 2023-09-28 | Outpatient (CLI) | payer OTHER ==
--- NOTE | 2023-09-29 13:20 | CTL ---
EXAMINATION TYPE: CT Low Dose Lung DATE OF EXAM ORDERED: 09/28/2023 HISTORY: Tobacco use. Lung cancer screening CT DLP: 105.[address] CTDI: 3.10 mGy Automated exposure control for dose reduction was used. SCREENING VISIT: Initial COMPARISON: None TECHNIQUE: Low dose computed tomography scan was performed through the chest at 1 mm thick sections a nd reconstructed images in the coronal plane at [address] DIAGNOSTIC QUALITY: Satisfactory FINDINGS: LUNG NODULES: Present, detailed below: Lungs are major fissure is a 4.7 x 6.3 cm mass extending from the right hilum to the periphery. Addit ional workup for neoplasm is recommended. LUNGS: COPD: Severity: None Fibrosis: Severity: None Lymph nodes: There is a 1.0 cm lymph node in the pretracheal space. Multiple shotty lymph nodes are p resent. Other findings: None RIGHT PLEURAL SPACE: Effusion: None Calcification: None Thickening: None Pneumothorax: None LEFT PLEURAL SPACE: Effusion: None Calcification: None Thickening: None Pneumothorax: None HEART: Other: Ascending thoracic aorta at the level the main pulmonary artery measures 3.2 cm. The main pul monary artery at the bifurcation measures 2.3 cm. Heart Size: Normal Coronary calcification: Mild Pericardial effusion: None OTHER FINDINGS: Upper abdomen: There is prominent enlargement of bilateral adrenal glands extending out of the field of view. Bony thorax: Normal Supraclavicular region: Normal IMPRESSION: 1. Large right perihilar mass suspicious for neoplasm. 2. At least one enlarged pretracheal lymph node with additional shotty lymphadenopathy within the med iastinum. 3. Bilateral adrenal glands are enlarged. Metastatic disease is not excluded. FOLLOW UP CT CHEST RECOMMENDATION: Follow up PET/CT CT LUNG RAD: Lung-Rad 4B Suspicious
== END | disposition home or self-care (01) ==
LOC: RADCTMAIN 06:09
PROVIDERS: ATTEND Family Medicine
DX: Z12.2 Encounter for screening for malignant neoplasm of respiratory organs (principal); R91.8 Other nonspecific abnormal finding of lung field; E27.8 Other specified disorders of adrenal gland; R59.0 Localized enlarged lymph nodes; Z87.891 Personal history of nicotine dependence
CPT/HCPCS: 71271

== ENCOUNTER → 2023-10-21 | Outpatient (CLI) | payer OTHER ==
--- NOTE | 2023-10-22 13:47 | PE ---
EXAMINATION TYPE: PET CT fusion skull to thigh DATE OF EXAM: 10/21/2023 CLINICAL INDICATION:Male, 62 years old with history of R91.8 Lung mass; TECHNIQUE: Following the intravenous administration of 10.47 mCi of F-18 FDG, whole body images are performed from the skull base to the midthigh. Images are reviewed on the computer in the coronal, axial, and sagittal planes. Reconstructed rotating images are created on independent workstation and reviewed on the computer. A non-contrast CT is performed in conjunction with the PET scan. Glucose level 95 mg/dL CT DLP: 690.92 mGycm, Automated exposure control for dose reduction was used. COMPARISON: CT low-dose lung cancer screening 09/28/2023, PET/CT None, MRI: None FINDINGS: Mediastinal SUV mean is 2.47. Hepatic parenchyma SUV mean is 3.56. SKULL BASE AND NECK: Focal FDG uptake identified within the right anterior mandible likely related t o periodontal disease with a maximum SUV 6.66. CHEST, MEDIASTINUM, AND HILAR REGION: Redemonstration of a right middle lobe mass extending to the hi lum measuring 7.9 x 4.5 cm with some stranding atelectasis. This demonstrates a maximum SUV of 13.02. Enlarged subcarinal lymph node measuring 1.6 mm short axis with a maximum SUV of 3.93. No other susp icious focal FDG activity identified. ABDOMEN AND PELVIS: Right adrenal gland mass measuring up to 5.6 cm with a max SUV 10.06. Left adrena l gland mass measuring up to 4.3 cm with a max SUV 19.56. Additional focal uptake identified within t he region of the left hepatic dome/right atrium without corresponding lesion on CT. This measures 6.7 5 maximum SUV and measures about 1.2 cm. No other suspicious radiotracer activity. MUSCULOSKELETAL STRUCTURES: No suspicious radiotracer activity. OTHER CT: Left inferior maxillary sinus mucous retention cyst. Bilateral carotid bulb calcifications. Bilateral gynecomastia. Moderate coronary arterial calcifications. Cardiomegaly. Scattered colonic d iverticulosis. Right urinary bladder diverticulum. Right inguinal hernia containing fat. IMPRESSION: 1. FDG avid right middle lobe 7.9 cm pulmonary mass most consistent with primary lung cancer. 2. Bilateral adrenal masses which are FDG avid and most consistent with metastasis. 3. Single FDG avid focus within the left hepatic lobe near the dome without CT correlate. May repres ent metastasis versus artifact. 4. Enlarged subcarinal lymph node with mild FDG uptake just above background. This is indeterminate. Cannot exclude metastasis.
== END | disposition home or self-care (01) ==
LOC: RADPETMAIN 09:47
PROVIDERS: ATTEND Internal Medicine
DX: R91.8 Other nonspecific abnormal finding of lung field (principal); E27.9 Disorder of adrenal gland, unspecified
CPT/HCPCS: 78815; A9552

== ENCOUNTER 2023-11-10 09:06 | Day surgery (SDC) | payer OTHER ==
[2023-11-08 14:40] VITALS: BMI 27.8
[~2023-11-10 09:06] MED LIST changes: -ALPRAZolam 0.25 MG TAB PO PRN; -ALPRAZolam 0.5 MG TAB PO PRN; -HEPARIN SODIUM,PORCINE (1 ML) 2,500 UNIT in SODIUM CHLORIDE 0.9% 250 ML IRRIGATION PRN; -HEPARIN SODIUM,PORCINE 10,000 UNIT in SODIUM CHLORIDE 0.9% 1,000 ML IRRIGATION PRN; +LACTATED RINGERS 1,000 ML IV SCH; +LIDOCAINE 1% (10MG/ML) FOR IV START INTRADERMA PRN; -NITROGLYCERIN SL TABS 0.4 MG TAB SUBLINGUAL PRN
[2023-11-10] MEDS: IV FLUID CONTINUATION 1,000 ML IV ONE (09:34)
[2023-11-10] MEDS: MIDAZOLAM 2 MG/2 ML VIAL IV ONE (09:56)
[2023-11-10] MEDS: LACTATED RINGERS 1,000 ML IV SCH (09:56)
[2023-11-10] MEDS: DEXAMETHASONE SOD PHOSPHATE 4 MG/ML 1 ML VIAL IVP STA (09:59)
[2023-11-10] MEDS ORDERED: PHENYLEPHRINE-0.9% NACL SYG 1,000 MCG/10 ML SYRINGE ONE (10:00)
[2023-11-10] MEDS ORDERED: LIDOCAINE 1% INJ 10MG/ML (20 ML MDV) ONE (10:00)
[2023-11-10] MEDS ORDERED: LABETALOL 5 MG/ML VIAL MDV ONE (10:00)
[2023-11-10] MEDS ORDERED: ETOMIDATE 2 MG/ML 10 ML VIAL ONE (10:00)
[2023-11-10] MEDS ORDERED: SUCCINYLCHOLINE CHLORIDE 200 MG/10 ML VIAL IV ONE (10:00)
[2023-11-10] MEDS ORDERED: NEOSTIGMINE 1 MG/ML 10 ML VIAL ONE (10:00)
[2023-11-10] MEDS ORDERED: ROCURONIUM 10 MG/ML (5 ML VIAL) IV ONE (10:00)
[2023-11-10] MEDS: ONDANSETRON 4 MG/2 ML VIAL IVP STA (10:00)
[2023-11-10] MEDS ORDERED: fentaNYL (PF) 50 MCG/ML 2 ML AMP ONE (10:00)
[2023-11-10] MEDS ORDERED: PROPOFOL 10 MG/ML 20 ML VIAL IV ONE (10:00)
[2023-11-10] MEDS ORDERED: GLYCOPYRROLATE 0.2 MG/ML 2 ML VIAL ONE (10:00)
--- NOTE | 2023-11-10 11:00 | FL ---
EXAMINATION TYPE: FL bronchoscopy Intraoperative/procedural fluoroscopic services were provided. Tota l fluoroscopy time is 18 seconds with a total of 3 submitted images to PACS. Please see the operative /procedural note for further details. DAP: 0.8630 Gycm2
[2023-11-10 11:03] VITALS: TEMP 97.8
--- NOTE | 2023-11-10 11:12 | XR ---
EXAMINATION TYPE: XR chest 1V portable DATE OF EXAM: 11/10/2023 HISTORY: Shortness of breath. COMPARISON: 11/02/2023 TECHNIQUE: Single view of the chest is submitted. FINDINGS: Demonstrated are scattered senescent parenchymal change. Stable right perihilar mass. The heart is stable. Hilar and mediastinal structures are within normal limits. Degenerative changes are seen of the dorsal spine. IMPRESSION: 1. Stable right perihilar mass.
[2023-11-10 11:54] VITALS: BP 155/81; PULSE 93; RESP 16
--- NOTE | 2023-11-10 12:24 | OP ---
OPERATIVE REPORT DATE OF SERVICE : PROCEDURES PERFORMED: Bronchoscopy, endobronchial biopsy of right middle lobe endobronchial tumor, brushings and washings of endobronchial tumor from the right middle lobe, and multiple transbronchial biopsies of the lateral segment of the right lower lobe using fluoroscopy. PREOPERATIVE DIAGNOSIS: Right lung mass. POSTOPERATIVE DIAGNOSIS: Endobronchial right middle lobe tumor highly consistent with a bronchogenic carcinoma. ANESTHESIA USED: The patient was given general anesthesia. DESCRIPTION OF PROCEDURE: The patient was brought into the bronchoscopy suite, he was intubated and placed on mechanical ventilation by [employer]. After adequate sedation, the bronchoscope was advanced down through the endotracheal tube down to the distal trachea, and the jenae was noted to be sharp. Thorough examination was done of the left side, no evidence of any endobronchial pathology noted on the left side. We visualized the left upper lobe lingula and left lower lobe. Then, we visualized the right upper lobe, there was no evidence of any endobronchial tumors; however, as I went down, I saw an endobronchial tumor almost subtotally occluding the right middle lobe, medial segment, and lateral segment. Biopsies of the endobronchial tumor were done, multiple endobronchial biopsies were done, then multiple transbronchial biopsies of the right middle lobe lateral segment were also done and we used fluoroscopy as a guidance. Brushings, washings, lavage, and brushings were done from the right middle lobe endobronchial tumor, which was mostly emanating from the lateral segment of the right middle lobe. Procedure was well tolerated, no complications, the patient will be discharged home today, chest x-ray is pending at the time of dictation. Again, no complications. Procedure was well tolerated. MMODL / IJN: [id number] /
== END 2023-11-10 12:11 | disposition home or self-care (01) ==
LOC: ORWHC2ENDO 09:06
PROVIDERS: ATTEND Internal Medicine
DX: C34.2 Malignant neoplasm of middle lobe, bronchus or lung (principal); I10 Essential (primary) hypertension; E78.5 Hyperlipidemia, unspecified; F10.99 Alcohol use, unspecified with unspecified alcohol-induced disorder; I25.10 Atherosclerotic heart disease of native coronary artery without angina pectoris; I25.2 Old myocardial infarction; Z87.891 Personal history of nicotine dependence; Z79.899 Other long term (current) drug therapy
CPT/HCPCS: 88104; 88108; 88305; 87070; 87205; 71045; 31628; 31623; 31624; J2250; J0330; J1100; J2710; J2405; J2001; J3010; J2704; J2371; J1920; J1596

== ENCOUNTER 2023-12-15 09:50 | Day surgery (SDC) | payer OTHER ==
[~2023-12-15 09:50] MED LIST changes: +ALPRAZolam 0.25 MG TAB PO PRN; +ALPRAZolam 0.5 MG TAB PO PRN; +ATORVASTATIN 80 MG TAB PO STA; -LACTATED RINGERS 1,000 ML IV SCH; -LIDOCAINE 1% (10MG/ML) FOR IV START INTRADERMA PRN; +NITROGLYCERIN SL TABS 0.4 MG TAB SUBLINGUAL PRN
[2023-12-15 10:06] VITALS: RESP 18
[2023-12-15] MEDS: SODIUM CHLORIDE 0.9% 1,000 ML in EMPTY BAG 1 BAG IV SCH (10:06)
[2023-12-15] MEDS: IV FLUID CONTINUATION 1,000 ML IV ONE (10:06)
[2023-12-15 10:36] LABS: Basophils % (A) 0 %; Eosinophils # (A) 0.2 k/uL (0-0.7); Eosinophils % (A) 4 %; HCT 31.4 % (39.0-53.0); HGB 8.8 gm/dL (13.0-17.5); Hypochromasia Marked; Lymphocytes # (A) 0.6 k/uL (1.0-4.8); Lymphocytes % (A) 17 %; MCH 23.3 pg (25.0-35.0); MCHC 28.1 g/dL (31.0-37.0); MCV 82.9 fL (80.0-100.0); Mean Platelet Volume 7.6; Monocytes # (A) 0.3 k/uL (0-1.0); Monocytes % (A) 9 %; Neutrophils # (A) 2.5 k/uL (1.3-7.7); Neutrophils % (A) 70 %; Platelet Count 275 k/uL (150-450); RBC 3.78 m/uL (4.30-5.90); RDW 15.5 % (11.5-15.5); WBC 3.6 k/uL (3.8-10.6)
[2023-12-15] MEDS: ASPIRIN 325 MG TAB PO STA (10:39)
[2023-12-15] MEDS: lisinopriL 10 MG TAB PO STA (10:39)
[2023-12-15] MEDS: CLOPIDOGREL 75 MG TAB ONE (10:39)
[2023-12-15 10:40] LABS: African American GFR (CKD) >90 (>60 ml/min/1.73 sqM); Anion Gap 8 mmol/L; Blood Urea Nitrogen 14 mg/dL (9-20); Calcium 9.8 mg/dL (8.4-10.2); Carbon Dioxide 29 mmol/L (22-30); Chloride 99 mmol/L (98-107); Glucose 120 mg/dL (74-99); Non-African American GFR(CKD) >90 (>60 ml/min/1.73 sqM); Potassium 4.8 mmol/L (3.5-5.1); Sodium 136 mmol/L (137-145)
[2023-12-15] MEDS ORDERED: VERAPAMIL 2.5 MG/ML 2 ML AMP ONE (11:47)
[2023-12-15] MEDS ORDERED: LIDOCAINE 1% INJ 10MG/ML (20 ML MDV) ONE (11:48)
[2023-12-15] MEDS ORDERED: fentaNYL (PF) 50 MCG/ML 2 ML AMP ONE (12:03)
[2023-12-15] MEDS ORDERED: HEPARIN SODIUM 1,000 UN/ML (10ML VL) ONE (12:03)
[2023-12-15] MEDS: fentaNYL (PF) 50 MCG/ML 2 ML AMP IVP ONE (12:18)
[2023-12-15] MEDS: LIDOCAINE 1% INJ 10MG/ML (20 ML MDV) SQ ONE (12:23)
[2023-12-15] MEDS: VERAPAMIL SYRINGE (5 MG/10 ML) INTRAARTER ONE (12:25)
[2023-12-15] MEDS: HEPARIN SODIUM 1,000 UN/ML (10ML VL) IVP ONE (12:32)
[2023-12-15] MEDS: IOPAMIDOL-370 200ML BTL INJ ONE (12:50)
[2023-12-15] MEDS: HEPARIN SODIUM,PORCINE (1 ML) 2,500 UNIT in SODIUM CHLORIDE 0.9% 250 ML IRRIGATION PRN (12:51)
[2023-12-15] MEDS: HEPARIN SODIUM,PORCINE 10,000 UNIT in SODIUM CHLORIDE 0.9% 1,000 ML IRRIGATION PRN (12:51)
[2023-12-15] MEDS ORDERED: RX INFO: IV CONTRAST WAS GIVEN 1 EACH MISC MISCELLANE PRN (13:07)
--- NOTE | 2023-12-15 13:13 | P.CRDCN ---
History of Present Illness Consult date: 12/15/23 History of present illness: Cardiac Catheterization: The patient is a 63-year-old male with known history of triple-vessel disease, status post multivessel stenting who has been found to have a mass in the lung with possible liver mets and scheduled to undergo further intervention. He presented to the office with symptoms of exertional chest discomfort requiring nitroglycerin. Because of his prior history and upcoming procedure further evaluation was recommended. Recommendations were made regarding cardiac catheterization, the risks and the complications were discussed with the patient who is in full understanding and agreement. Procedure Description: Patient was brought to bobcat driver/labor in fasting semi-sedated state after receiving Fentanyl and Benadryl achieiving moderate conscious sedated state. Using Xylocaine Anesthesia and modified Seldinger technique, a 6-Welsh sheath was introduced in the right radial artery . Subsequently, selective coronary angiography was performed using a 5-Welsh 3.5 bend right Steffanie and 6 Welsh CLS 3.5 guiding catheter. Attempt to cannulate the left main using a 5 Welsh 3.5 left Steffanie and a 5 Welsh Nelson were un successful. Multiple views of the coronary artery including hemiaxial views were obtained. The right Steffanie catheter was used to cross the aortic valve and LVEDP was calculated. Following that, catheter and sheath were removed. Hemostasis was obtained with deployment of vascular band . There was no immediate complication. Patient was returned to room in stable condition. Of note, the patient received a total of 4500 units of intravenous heparin as well as intra-arterial verapamil. Findings: Fluoroscopy: Calcifications of the coronary arteries was noted. Left main: This is a large size vessel, bifurcating into left circumflex and LAD, left main has no significant obstructive disease LAD: This is a large size vessel, reaching to the apex with a wrap around the apex segment. Giving rise to a moderately sized diagonal branch proximally. The stented segment in the proximal LAD is patent. The takeoff of the first diagonal branch has a 95% stenosis with MAICO-3 flow, unchanged compared to June 2023. The mid vessel has mild intimal disease of 20 to 30%. Left circumflex: This is a nondominant vessel giving rise to 3 obtuse marginal branch. The stented segment in the proximal left circumflex is patent with no significant in-stent restenosis. After the takeoff of the second obtuse marginal branch there is a 50% plaque at the bifurcation without significant progression compared with prior imaging. RCA: This is a dominant vessel, totally occluded in the midsegment with no significant antegrade flow. There is contralateral collaterals from the LAD toward the PDA Left Ventriculogram: Not performed Hemodynamics: There was no gradient across the aortic valve, LVEDP was 8-10 mmHg Conclusion: 1. Chronically occluded RCA 2. Patent stent in the proximal LAD with severe stenosis in the first diagonal branch, unchanged 3. Patent stent in the proximal left circumflex with moderate disease in the midsegment distal to the stent, with no progression 4. Low left ventricular end-diastolic pressure Recommendations: At this time I will continue medical therapy with the aggressive coronary risks modification that has been initiated. His symptoms of chest discomfort could be related to his diagonal branch or RCA territory but since there is no progression I will continue on the present regimen. The findings and the recommendations were discussed with the patient and the family and they were in full understanding and agreement. Duration of sedation is 29 minutes. Past Medical History Past Medical History: Coronary Artery Disease (CAD), Cancer, Chest Pain / Angina, GERD/Reflux, Hyperlipidemia, Hypertension, Myocardial Infarction (NM) Additional Past Medical History / Comment(s): lung , liver, chest pain over last 2 yrs Last Myocardial Infarction Date:: 2021-Janjuly 05 History of Any Multi-Drug Resistant Organisms: None Reported Past Surgical History: Heart Catheterization With Stent, Tonsillectomy Additional Past Surgical History / Comment(s): COLONOSCOPY, Past Anesthesia/Blood Transfusion Reactions: No Reported Reaction Additional Past Anesthesia/Blood Transfusion Reaction / Comment(s): no blood transfusion Date of Last Stent Placement:: 01/29/22,july 05 Smoking Status: Former smoker - Past Family History Father History Unknown: Yes Family Medical History: Coronary Artery Disease (CAD), Myocardial Infarction (NM) Mother History Unknown: Yes Family Medical History: Cancer Additional Family Medical History / Comment(s): breast Sister(s) Family Medical History: Cancer Additional Family Medical History / Comment(s): melanoma Medications and Allergies Home Medications Medication Instructions Recorded Confirmed Type Aspirin 81 mg PO DAILY #90 tab 01/30/22 12/15/23 Rx Atorvastatin [Lipitor] 80 mg PO HS #90 tab 01/30/22 12/15/23 Rx Clopidogrel [Plavix] 75 mg PO DAILY 30 Days #30 tab 01/30/22 12/15/23 Rx Dapagliflozin Propanediol [Farxiga] 10 mg PO HS 03/25/23 12/15/23 History Isosorbide Mononitrate ER [Imdur] 60 mg PO HS 03/25/23 12/15/23 History Metoprolol Succinate (ER) [Toprol 50 mg PO HS 03/25/23 12/15/23 History XL] lisinopriL [Zestril] 10 mg PO BID 03/25/23 12/15/23 History Nitroglycerin Sl Tabs [Nitrostat] 0.4 mg SUBLINGUAL Q5M PRN #100 tab 03/29/23 12/15/23 Rx Spironolactone [Aldactone] 25 mg PO HS 03/29/23 12/15/23 History Isosorbide Mononitrate ER [Imdur] 30 mg PO 0800 12/14/23 12/15/23 History Allergies Allergy/AdvReac Type Severity Reaction Status Date / Time No Known Allergies Allergy Verified 12/15/23 09:59 Physical Exam Vitals: Vital Signs Pulse Resp BP Pulse Ox 12/15/23 10:04 124 H 18 164/90 93 L Intake and Output 12/14/23 12/15/23 12/15/23 22:59 06:59 14:59 Intake Total 700 Balance 700 Intake: IV 700 Other: Weight 81.4 kg Results 12/15/23 10:05 12/15/23 10:05 CBC 12/15/23 Range/Units 10:05 WBC 3.6 L (3.8-10.6) k/uL RBC 3.78 L (4.30-5.90) m/uL Hgb 8.8 L (13.0-17.5) gm/dL Hct 31.4 L (39.0-53.0) % Plt Count 275 (150-450) k/uL Comprehensive Metabolic Panel 12/15/23 Range/Units 10:05 Sodium 136 L (137-145) mmol/L Potassium 4.8 (3.5-5.1) mmol/L Chloride 99 (98-107) mmol/L Carbon Dioxide 29 (22-30) mmol/L BUN 14 (9-20) mg/dL Creatinine 0.75 (0.66-1.25) mg/dL Glucose 120 H (74-99) mg/dL Calcium 9.8 (8.4-10.2) mg/dL Current Medications Generic Name Dose Route Start Last Admin Trade Name Freq PRN Reason Stop Dose Admin Alprazolam 0.25 mg 12/15/23 06:00 Alprazolam 0.25 Mg Tab PO 01/14/24 05:59 Q6HR PRN Mild Anxiety Alprazolam 0.5 mg 12/15/23 06:00 Alprazolam 0.5 Mg Tab PO 01/14/24 05:59 Q6HR PRN Moderate Anxiety Aspirin 81 mg 12/16/23 09:00 Aspirin 81 Mg PO 01/15/24 08:59 DAILY ANETA Atorvastatin Calcium 80 mg 12/15/23 21:00 Atorvastatin 80 Mg Tab PO 01/14/24 20:59 HS [facility] Clopidogrel Bisulfate 75 mg 12/16/23 09:00 Clopidogrel 75 Mg Tab PO 01/15/24 08:59 DAILY ANETA Sodium Chloride 1,000 ml/ IV 1,000 mls @ 86.183 mls/hr 12/15/23 06:00 12/15/23 10:06 Solution IV 01/14/24 05:59 86.183 mls/hr .[id number] ANETA Administration 1 ML/KG/HR Sodium Chloride 1,000 mls @ 75 mls/hr 12/15/23 13:15 Saline 0.9% IV 12/15/23 16:14 .[id number] ANETA Isosorbide Mononitrate 30 mg 12/16/23 08:00 Isosorbide Mononitrate Er 30 Mg Tab.Er.24h PO 01/15/24 07:59 0800 [facility] Isosorbide Mononitrate 60 mg 12/15/23 21:00 Isosorbide Mononitrate Er 60 Mg Tab.Er.24h PO 01/14/24 20:59 HS [facility] Metoprolol Succinate 50 mg 12/15/23 21:00 Metoprolol Succinate (Er) 25 Mg Tab.Er.24h PO 01/14/24 20:59 HS [facility] Miscellaneous Information 1 each 12/15/23 13:07 Rx Info: Iv Contrast Was Given 1 Each Misc MISCELLANE 12/17/23 13:06 DAILY PRN Per Protocol Nitroglycerin 0.4 mg 12/15/23 06:00 Nitroglycerin Sl Tabs 0.4 Mg Tab SUBLINGUAL 01/14/24 05:59 Q5M PRN Chest Pain Spironolactone 25 mg 12/15/23 21:00 Spironolactone 25 Mg Tab PO 01/14/24 20:59 HS ANETA Intake and Output 12/14/23 12/15/23 12/15/23 22:59 06:59 14:59 Intake Total 700 Balance 700 Intake: IV 700 Other: Weight 81.4 kg Patient Weight 12/16/23 06:59 Weight 81.4 kg 12/15/23 10:05 12/15/23 10:05
[2023-12-15] MEDS ORDERED: SODIUM CHLORIDE 0.9% 1,000 ML IV SCH (13:15)
[2023-12-15] MEDS: SODIUM CHLORIDE 0.9% 500 ML 500 ML IV ONE (15:00)
[2023-12-15 16:40] VITALS: BP 137/76; PULSE 102
[2023-12-15] MEDS ORDERED: SPIRONOLACTONE 25 MG TAB PO SCH (21:00)
[2023-12-15] MEDS ORDERED: ATORVASTATIN 80 MG TAB PO SCH (21:00)
[2023-12-15] MEDS ORDERED: METOPROLOL SUCCINATE (ER) 25 MG TAB.ER.24H PO SCH (21:00)
[2023-12-15] MEDS ORDERED: ISOSORBIDE MONONITRATE ER 60 MG TAB.ER.24H PO SCH (21:00)
[2023-12-16] MEDS ORDERED: ISOSORBIDE MONONITRATE ER 30 MG TAB.ER.24H PO SCH (08:00)
[2023-12-16] MEDS ORDERED: CLOPIDOGREL 75 MG TAB PO SCH (09:00)
[2023-12-16] MEDS ORDERED: ASPIRIN 81 MG PO SCH (09:00)
== END 2023-12-15 16:35 | disposition home or self-care (01) ==
LOC: CATHCVL 09:50
PROVIDERS: ATTEND Internal Medicine Interventional Cardiology
DX: I25.10 Atherosclerotic heart disease of native coronary artery without angina pectoris (principal); I25.2 Old myocardial infarction; I10 Essential (primary) hypertension; E78.5 Hyperlipidemia, unspecified; K21.9 Gastro-esophageal reflux disease without esophagitis; Z79.02 Long term (current) use of antithrombotics/antiplatelets; Z87.891 Personal history of nicotine dependence; Z95.5 Presence of coronary angioplasty implant and graft
CPT/HCPCS: 80048; 85025; 93458

== ENCOUNTER 2024-02-02 10:40 | Emergency (ER) | payer OTHER ==
[2024-02-02 10:46] VITALS: RESP 18; TEMP 97.6
--- NOTE | 2024-02-02 11:00 | ED ---
Nausea/Vomiting/Diarrhea HPI - General Chief complaint: Nausea/Vomiting/Diarrhea Stated complaint: dehydration Time Seen by Provider: 02/02/24 10:47 Source: patient, family, RN notes reviewed Mode of arrival: ambulatory Limitations: no limitations - History of Present Illness Initial comments: This is a 63-year-old male who presents to the emergency department for nausea, vomiting, and weakness. On a 11/10/2023 he underwent a bronchoscopy due to a lung mass noted on imaging. Pulmonology advised that the appearance was very similar to carcinoid, however the biopsies were too necrotic for the pathologist to confirm this diagnosis. They were however compatible with neoplasm. The imaging also showed concern for metastasis to several areas, and he was referred to hem/onc. He has not had a second bronchoscopy. Renal biopsy is scheduled for next week. He was referred to Dr. North and saw him in the office today. He advised that he had been very weak, nauseous, and not eating over the last couple of days. They also noticed that his abdomen seemed very bloated and he was advised to go to the emergency department for further evaluation. Patient is not currently on any cancer treatment and at this point states that he does not plan to proceed with chemo or radiation therapy. - Related Data Home Medications Medication Instructions Recorded Confirmed Dapagliflozin Propanediol [Farxiga] 10 mg PO HS 03/25/23 02/02/24 Isosorbide Mononitrate ER [Imdur] 60 mg PO HS 03/25/23 02/02/24 lisinopriL [Zestril] 10 mg PO BID 03/25/23 02/02/24 Isosorbide Mononitrate ER [Imdur] 30 mg PO DAILY 02/02/24 02/02/24 Metoprolol Succinate [Toprol XL] 50 mg PO HS 02/02/24 02/02/24 Ondansetron Odt [Zofran Odt] 8 mg PO Q8HR PRN 02/02/24 02/02/24 Previous Rx's Medication Instructions Recorded Aspirin 81 mg PO DAILY #90 tab 01/30/22 Atorvastatin [Lipitor] 80 mg PO HS #90 tab 01/30/22 Clopidogrel [Plavix] 75 mg PO DAILY 30 Days #30 tab 01/30/22 Nitroglycerin Sl Tabs [Nitrostat] 0.4 mg SUBLINGUAL Q5M PRN #100 tab 12/18/23 Allergies Allergy/AdvReac Type Severity Reaction Status Date / Time No Known Allergies Allergy Verified 02/02/24 11:38 Review of Systems ROS Statement: Those systems with pertinent positive or pertinent negative responses have been documented in the HPI. ROS Other: All systems not noted in ROS Statement are negative. Past Medical History Past Medical History: Coronary Artery Disease (CAD), Cancer, Chest Pain / Angina, GERD/Reflux, Hyperlipidemia, Hypertension, Myocardial Infarction ([place]) Additional Past Medical History / Comment(s): lung , liver, chest pain over last 2 yrs Last Myocardial Infarction Date:: 2021-Janjuly 05 History of Any Multi-Drug Resistant Organisms: None Reported Past Surgical History: Heart Catheterization With Stent, Tonsillectomy Additional Past Surgical History / Comment(s): COLONOSCOPY, lung biopsy Past Anesthesia/Blood Transfusion Reactions: No Reported Reaction Additional Past Anesthesia/Blood Transfusion Reaction / Comment(s): no blood transfusion Date of Last Stent Placement:: 01/29/22,july 05 Past Psychological History: No Psychological Hx Reported Smoking Status: Former smoker Past Alcohol Use History: None Reported Past Drug Use History: None Reported - Past Family History Father History Unknown: Yes Family Medical History: Coronary Artery Disease (CAD), Myocardial Infarction ([place]) Mother History Unknown: Yes Family Medical History: Cancer Additional Family Medical History / Comment(s): breast Sister(s) Family Medical History: Cancer Additional Family Medical History / Comment(s): melanoma General Exam Limitations: no limitations General appearance: alert, in no apparent distress Head exam: Present: atraumatic, normocephalic, normal inspection Respiratory exam: Present: normal lung sounds bilaterally. Absent: respiratory distress, wheezes, rales, rhonchi, stridor Cardiovascular Exam: Present: regular rate, normal rhythm, normal heart sounds. Absent: systolic murmur, diastolic murmur, rubs, gallop, clicks GI/Abdominal exam: Present: soft, distended, tenderness Neurological exam: Present: alert, oriented X3, CN II-XII intact Psychiatric exam: Present: normal affect, normal mood Skin exam: Present: warm, dry, intact, normal color. Absent: rash Course Vital Signs 02/02/24 02/02/24 02/02/24 10:41 13:25 15:42 Temperature 97.6 F Pulse Rate 66 101 H 104 H Respiratory 18 18 18 Rate Blood Pressure 97/61 106/71 111/51 O2 Sat by Pulse 95 96 94 L Oximetry 02/02/24 16:50 Temperature Pulse Rate 102 H Respiratory 18 Rate Blood Pressure 123/71 O2 Sat by Pulse 93 L Oximetry Medical Decision Making - Medical Decision Making This is a 63 year old male who presents to the emergency department for weakness and nausea. Was pt. sent in by a medical professional or institution? @ -Hem/onc Did you speak to anyone other than the patient for history? @ -No Did you review nursing and triage notes? @ -Yes, and I agree, it is accurate with regards to the patient's symptoms. Were old charts reviewed? @ -No Differential Diagnosis? @ -Differential Weakness: Hypoglycemia, shock, sepsis, hyponatremia, anemia, infection, [place], ETOH, adverse medicine reaction, overdose, stroke, this is not meant to be an all-inclusive list. EKG interpreted by me (3pts min.)? @ -EKG interpreted by me demonstrating the following: Sinus tachycardia. Ventricular rate 114 bpm, MA interval 139 ms, QRS duration 137 ms, QTc 394 ms. X-rays interpreted by me (1pt min.)? @ -Not obtained CT interpreted by me (1pt min.)? @ -CT scan of the abdomen and pelvis obtained. My interpretation identifies bilateral adrenal masses. U/S interpreted by me (1pt. min.)? @ -Not obtained What testing was considered but not performed? (CT, X-rays, U/S, labs)? Why? @ -None What meds were considered but not given? Why? @ -None Did you discuss the management of the patient with other professionals? @ -Yes, Dr. Ortiz, vascular surgery, who advised that because the thrombus is essentially more tumor, there is no need for anticoagulation. [place] with hem/onc advised admission for symptomatic management and cortisol level. Did you reconcile home meds? @ -No Was smoking cessation discussed for >3mins.? @ -No Was critical care preformed (if so, how long)? @ -No Were there social determinants of health that impacted care today? How? (Homelessness, low income, unemployed, alcoholism, drug addiction, transportation, low edu. Level, literacy, decrease access to med. care, fpc, rehab)? @ -No Was there de-escalation of care discussed even if they declined? (Discuss DNR or withdrawal of care, Hospice)? @ -No What co-morbidities impacted this encounter? (DM, HTN, Smoking, COPD, CAD, Cancer, CVA, Hep., AIDS, mental health diagnosis, sleep apnea, morbid obesity)? @ -Cancer, CAD Was patient admitted / discharged? @ -Lab work demonstrates an elevated lactic acid of 2.2 and was otherwise relatively unremarkable. Urinalysis negative for signs of infection. CT scan of the abdomen and pelvis demonstrates significant disease progression. 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 This was discussed with Dr. Ortiz, vascular surgery, who advised that since the thrombus is composed of tumor, anticoagulation is not indicated and nothing needs to be done from a vascular perspective. We then spoke with hem/onc, who requested patient's symptoms be controlled and they can consult on the patient if admitted. They also requested checking a cortisol level due to adrenal masses. Discussed admission with the patient for hydration and symptomatic control. He advised that he was already feeling much better with IV fluids and zofran. He requested discharge home at that point. He has a follow up appointment in 2 days and a renal biopsy next week and would rather rest at home to get ready for those. He just refilled his zofran and has plenty to continue taking as needed. Patient discharged home in stable condition with strict return parameters. Case discussed with ED attending, Dr. Williamson. Undiagnosed new problem with uncertain prognosis? @ -None Drug Therapy requiring intensive monitoring for toxicity (Heparin, Nitro, Insulin, Cardizem)? @ -None Were any procedures done? @ -None Diagnosis/symptom? @ -Bloating, nausea, dehydration Acute, or Chronic, or Acute on Chronic? @ -Acute Uncomplicated (without systemic symptoms) or Complicated (systemic symptoms)? @ -Complicated Side effects of treatment? @ -None Exacerbation, Progression, or Severe Exacerbation] @ -Not applicable Poses a threat to life or bodily function? @ -This will depend on how he progresses - Lab Data Result diagrams: 02/02/24 11:03 02/02/24 11:03 Lab Results 02/02/24 02/02/24 02/02/24 Range/Units 11:03 11:03 11:03 WBC 5.2 (3.8-10.6) k/uL RBC 4.44 (4.30-5.90) m/uL Hgb 11.2 L (13.0-17.5) gm/dL Hct 34.2 L (39.0-53.0) % MCV 77.0 L D (80.0-100.0) fL MCH 25.2 (25.0-35.0) pg MCHC 32.7 (31.0-37.0) g/dL RDW 16.0 H (11.5-15.5) % Plt Count 313 (150-450) k/uL MPV 8.2 Neutrophils % 72 % Lymphocytes % 19 % Monocytes % 6 % Eosinophils % 2 % Basophils % 0 % Neutrophils # 3.7 (1.3-7.7) k/uL Lymphocytes # 1.0 (1.0-4.8) k/uL Monocytes # 0.3 (0-1.0) k/uL Eosinophils # 0.1 (0-0.7) k/uL Basophils # 0.0 (0-0.2) k/uL Manual Slide Review Performed Hypochromasia Slight Microcytosis Slight Rouleaux Present PT 13.6 H (10.0-12.5) sec INR 1.3 H (<1.2) APTT 37.6 H (22.0-30.0) sec Sodium (137-145) mmol/L Potassium (3.5-5.1) mmol/L Chloride (98-107) mmol/L Carbon Dioxide (22-30) mmol/L Anion Gap mmol/L BUN (9-20) mg/dL Creatinine (0.66-1.25) mg/dL Est GFR (CKD-EPI)AfAm (>60 ml/min/1.73 sqM) Est GFR (CKD-EPI)NonAf (>60 ml/min/1.73 sqM) Glucose (74-99) mg/dL Lactic Ac Sepsis Rflx Plasma Lactic Acid Carloz (0.7-2.0) mmol/L Calcium (8.4-10.2) mg/dL Phosphorus (2.5-4.5) mg/dL Magnesium (1.6-2.3) mg/dL Total Bilirubin (0.2-1.3) mg/dL AST (17-59) U/L ALT (4-49) U/L Alkaline Phosphatase (38-126) U/L Total Protein (6.3-8.2) g/dL Albumin (3.5-5.0) g/dL Amylase (30-110) U/L Lipase (23-300) U/L Urine Color Light Yellow Urine Appearance Clear (Clear) Urine pH 5.5 (5.0-8.0) Ur Specific Shock 1.036 H (1.001-1.035) Urine Protein Negative (Negative) Urine Glucose (UA) Negative (Negative) Urine Ketones Negative (Negative) Urine Blood Negative (Negative) Urine Nitrite Negative (Negative) Urine Bilirubin Negative (Negative) Urine Urobilinogen <2.0 (<2.0) mg/dL Ur Leukocyte Esterase Negative (Negative) 02/02/24 02/02/24 02/02/24 Range/Units 11:03 11:03 11:37 WBC (3.8-10.6) k/uL RBC (4.30-5.90) m/uL Hgb (13.0-17.5) gm/dL Hct (39.0-53.0) % MCV (80.0-100.0) fL MCH (25.0-35.0) pg MCHC (31.0-37.0) g/dL RDW (11.5-15.5) % Plt Count (150-450) k/uL MPV Neutrophils % % Lymphocytes % % Monocytes % % Eosinophils % % Basophils % % Neutrophils # (1.3-7.7) k/uL Lymphocytes # (1.0-4.8) k/uL Monocytes # (0-1.0) k/uL Eosinophils # (0-0.7) k/uL Basophils # (0-0.2) k/uL Manual Slide Review Hypochromasia Microcytosis Rouleaux PT (10.0-12.5) sec INR (<1.2) APTT (22.0-30.0) sec Sodium 134 L (137-145) mmol/L Potassium 3.6 (3.5-5.1) mmol/L Chloride 99 (98-107) mmol/L Carbon Dioxide 27 (22-30) mmol/L Anion Gap 8 mmol/L BUN 13 (9-20) mg/dL Creatinine 0.77 (0.66-1.25) mg/dL Est GFR (CKD-EPI)AfAm >90 (>60 ml/min/1.73 sqM) Est GFR (CKD-EPI)NonAf >90 (>60 ml/min/1.73 sqM) Glucose 114 H (74-99) mg/dL Lactic Ac Sepsis Rflx Y Plasma Lactic Acid Carloz 2.2 H* (0.7-2.0) mmol/L Calcium 8.6 (8.4-10.2) mg/dL Phosphorus 3.4 (2.5-4.5) mg/dL Magnesium 1.8 (1.6-2.3) mg/dL Total Bilirubin 1.4 H (0.2-1.3) mg/dL AST 75 H (17-59) U/L ALT 24 (4-49) U/L Alkaline Phosphatase 178 H (38-126) U/L Total Protein 8.5 H (6.3-8.2) g/dL Albumin 3.5 (3.5-5.0) g/dL Amylase 51 (30-110) U/L Lipase 168 (23-300) U/L Urine Color Urine Appearance (Clear) Urine pH (5.0-8.0) Ur Specific Shock (1.001-1.035) Urine Protein (Negative) Urine Glucose (UA) (Negative) Urine Ketones (Negative) Urine Blood (Negative) Urine Nitrite (Negative) Urine Bilirubin (Negative) Urine Urobilinogen (<2.0) mg/dL Ur Leukocyte Esterase (Negative) 02/02/24 Range/Units 14:39 WBC (3.8-10.6) k/uL RBC (4.30-5.90) m/uL Hgb (13.0-17.5) gm/dL Hct (39.0-53.0) % MCV (80.0-100.0) fL MCH (25.0-35.0) pg MCHC (31.0-37.0) g/dL RDW (11.5-15.5) % Plt Count (150-450) k/uL MPV Neutrophils % % Lymphocytes % % Monocytes % % Eosinophils % % Basophils % % Neutrophils # (1.3-7.7) k/uL Lymphocytes # (1.0-4.8) k/uL Monocytes # (0-1.0) k/uL Eosinophils # (0-0.7) k/uL Basophils # (0-0.2) k/uL Manual Slide Review Hypochromasia Microcytosis Rouleaux PT (10.0-12.5) sec INR (<1.2) APTT (22.0-30.0) sec Sodium (137-145) mmol/L Potassium (3.5-5.1) mmol/L Chloride (98-107) mmol/L Carbon Dioxide (22-30) mmol/L Anion Gap mmol/L BUN (9-20) mg/dL Creatinine (0.66-1.25) mg/dL Est GFR (CKD-EPI)AfAm (>60 ml/min/1.73 sqM) Est GFR (CKD-EPI)NonAf (>60 ml/min/1.73 sqM) Glucose (74-99) mg/dL Lactic Ac Sepsis Rflx Plasma Lactic Acid Carloz 1.8 (0.7-2.0) mmol/L Calcium (8.4-10.2) mg/dL Phosphorus (2.5-4.5) mg/dL Magnesium (1.6-2.3) mg/dL Total Bilirubin (0.2-1.3) mg/dL AST (17-59) U/L ALT (4-49) U/L Alkaline Phosphatase (38-126) U/L Total Protein (6.3-8.2) g/dL Albumin (3.5-5.0) g/dL Amylase (30-110) U/L Lipase (23-300) U/L Urine Color Urine Appearance (Clear) Urine pH (5.0-8.0) Ur Specific Shock (1.001-1.035) Urine Protein (Negative) Urine Glucose (UA) (Negative) Urine Ketones (Negative) Urine Blood (Negative) Urine Nitrite (Negative) Urine Bilirubin (Negative) Urine Urobilinogen (<2.0) mg/dL Ur Leukocyte Esterase (Negative) - Radiology Data Radiology results: report reviewed, image reviewed Disposition Clinical Impression: Dehydration, Metastatic cancer, Bloating Disposition: HOME SELF-CARE Instructions (If sedation given, give patient instructions): Dehydration (ED), Acute Nausea and Vomiting (ED) Additional Instructions: Return to the emergency department with any new, worsening, or concerning symptoms. Follow up with your primary care provider in 1-2 days. Is patient prescribed a controlled substance at d/c from ED?: No Referrals: Ángel Hutchins MD [Primary Care Provider] - 1-2 days Time of Disposition: 16:34
[2024-02-02] MEDS: SODIUM CHLORIDE 0.9% 1,000 ML IV STA (11:04)
[2024-02-02] MEDS: ONDANSETRON 4 MG/2 ML VIAL IVP STA (11:04)
[2024-02-02 11:28] LABS: ALT 24 U/L (4-49); AST 75 U/L (17-59); African American GFR (CKD) >90 (>60 ml/min/1.73 sqM); Albumin 3.5 g/dL (3.5-5.0); Alkaline Phosphatase 178 U/L (38-126); Amylase 51 U/L (30-110); Anion Gap 8 mmol/L; Blood Urea Nitrogen 13 mg/dL (9-20); Calcium 8.6 mg/dL (8.4-10.2); Carbon Dioxide 27 mmol/L (22-30); Chloride 99 mmol/L (98-107); Glucose 114 mg/dL (74-99); Lipase 168 U/L (23-300); Magnesium 1.8 mg/dL (1.6-2.3); Non-African American GFR(CKD) >90 (>60 ml/min/1.73 sqM); Phosphorus 3.4 mg/dL (2.5-4.5); Potassium 3.6 mmol/L (3.5-5.1); Sodium 134 mmol/L (137-145); Total Bilirubin 1.4 mg/dL (0.2-1.3); Total Protein 8.5 g/dL (6.3-8.2)
[2024-02-02 11:40] LABS: Basophils % (A) 0 %; Eosinophils # (A) 0.1 k/uL (0-0.7); Eosinophils % (A) 2 %; HCT 34.2 % (39.0-53.0); HGB 11.2 gm/dL (13.0-17.5); Hypochromasia Slight; Lymphocytes % (A) 19 %; MCH 25.2 pg (25.0-35.0); MCHC 32.7 g/dL (31.0-37.0); Mean Platelet Volume 8.2; Microcytosis Slight; Monocytes # (A) 0.3 k/uL (0-1.0); Monocytes % (A) 6 %; Neutrophils # (A) 3.7 k/uL (1.3-7.7); Neutrophils % (A) 72 %; Platelet Count 313 k/uL (150-450); RBC 4.44 m/uL (4.30-5.90); WBC 5.2 k/uL (3.8-10.6)
[2024-02-02 11:52] LABS: INR 1.3 (<1.2); Partial Thromboplastin Time 37.6 sec (22.0-30.0); Prothrombin Time 13.6 sec (10.0-12.5)
--- NOTE | 2024-02-02 12:13 | CT ---
EXAMINATION TYPE: CT abdomen pelvis w con CT DLP: 944.6 mGycm, Automated exposure control for dose reduction was used. DATE OF EXAM: 02/02/2024 11:56 AM COMPARISON: Chest radiograph 12/07/2023, PET CT 10/21/2023 CLINICAL INDICATION:Male, 63 years old with history of Abdominal distention; Abdominal distention, h/ o lung CA TECHNIQUE: Standard CT of the abdomen and pelvis following the administration of 100 cc of Isovue 3 00 IV contrast material. Coronal and sagittal reformats were performed. FINDINGS: LOWER CHEST: Partial visualization of known right midlung 5.3 x 3.9 cm pulmonary mass. Remaining lung bases are clear. Coronary artery calcifications. No significant pericardial effusion. ABDOMEN LIVER: Surface nodularity of the liver without focal lesion identified. GALLBLADDER AND BILE DUCTS: Unremarkable. PANCREAS: Unremarkable. SPLEEN: Mildly enlarged measuring 15.6 cm in CC dimension. ADRENAL GLANDS: Bilateral heterogenous enhancing adrenal masses which have markedly increased in size from prior exam. The right now measures 6.7 x 5.7 cm, previously measured up to 5.6 cm x 4.0 cm. The left mass, measures 9.7 x 8.1 cm, previously 4.3 x 3.8 cm. They were FDG avid on prior PET/CT. Right adrenal mass abuts the IVC and hepatic lobe and right kidney. The left adrenal mass abuts the stomac h, spleen and kidney and pancreatic tail. There is a filling defect identified within the mid aspect of the left renal vein near the adrenal gland (series 301, image 31). This appears to be present on t he delayed imaging. There is mild stranding around both adrenal masses. KIDNEYS AND URETERS: No evidence of hydronephrosis or renal calculus. The knees enhance symmetrically without suspicious lesion. Contrast is demonstrated within both collecting systems on the delayed ph ase. PELVIS BLADDER: Right posterior urinary bladder diverticulum. REPRODUCTIVE: Coarse calcifications of the prostate gland are identified. Prostate gland is enlarged measuring 5.0 cm in transverse dimension. ABDOMEN & PELVIS STOMACH AND BOWEL: Stomach and duodenum are unremarkable. Few scattered distal colonic diverticula wi thout evidence for acute diverticulitis. No focal bowel wall thickening the appendix is within normal limits. No evidence of bowel obstruction. PERITONEUM: No evidence of pneumoperitoneum or free fluid. VASCULATURE: Mild atherosclerotic calcifications are present throughout the abdominal aorta and its b ranches. No evidence of aortic aneurysm. MUSCULOSKELETAL: No acute osseous abnormalities. No aggressive osseous lesion. LYMPH NODES: A few mildly enlarged periportal lymph nodes measuring up to 1.2 cm short axis. No other enlarged lymph nodes identified. SOFT TISSUE/ABDOMINAL WALL: Tiny fat filled umbilical hernia. Fat filled right inguinal hernia with s mall bowel approaching its opening. IMPRESSION: 1. Progression of metastatic disease with marked increased size of bilateral adrenal masses. Nonoccl usive filling defect within the mid left renal vein adjacent to the adrenal mass suspicious for tumor thrombus. 2. Few mildly enlarged periportal lymph nodes redemonstrated. Only demonstrated low level FDG activit y on prior PET/CT. These are nonspecific. 3. Partial visualization of known right mid lung cancer. 4. Surface nodularity to the liver without focal lesion. Correlate for cirrhosis. 5. Mild splenomegaly. 6. Right posterior urinary bladder diverticulum. [facility], , 02/02/2024 12:10 PM
[2024-02-02 13:05] LABS: Rouleaux Present
[2024-02-02 14:58] LABS: Appearance,Urine Clear (Clear); Bilirubin,Urine Negative (Negative); Blood,Urine Negative (Negative); Color,Urine Light Yellow; Glucose,Urine (UA) Negative (Negative); Ketones,Urine Negative (Negative); Leukocyte Esterase,Urine Negative (Negative); Nitrite,Urine Negative (Negative); PH, Urine 5.5 (5.0-8.0); Protein,Urine Negative (Negative); Specific Gravity,Urine 1.036 (1.001-1.035); Urobilinogen,Urine <2.0 mg/dL (<2.0)
[2024-02-02 16:51] VITALS: BP 123/71; PULSE 102
== END 2024-02-02 16:56 | disposition home or self-care (01) ==
LOC: EC 10:40
DX: E86.0 Dehydration (principal); C34.90 Malignant neoplasm of unspecified part of unspecified bronchus or lung; R14.0 Abdominal distension (gaseous); Z87.891 Personal history of nicotine dependence
CPT/HCPCS: 36415; 93005; 80053; 82533; 82150; 83605; 83690; 83735; 84100; 85025; 85610; 85730; 81003; 74177; 99284; 96374; 96361; J2405; Q9967